=== PATIENT | male | born 1980 | race Two or more races ===

== ENCOUNTER 2021-10-17 03:44 | Inpatient (IN) | payer OTHER ==
[~2021-10-17] VITALS: Ht 177.8 cm; Wt 90.7 kg
--- NOTE | 2021-10-17 05:00 | NUR ---
CALLED FOR TRIAGE NOT IN WAITING ROOM.
--- NOTE | 2021-10-17 05:27 | NUR ---
CALLED FOR TRIAGE NOT IN WAITING ROOM.
--- NOTE | 2021-10-17 06:00 | NUR ---
BIBS C/O "ABSCESS ON LEFT FOOT, LEFT FOOT AMPUTATED 4 MONTHS AGO" WELL ABSCESS TO POSTERIOR ASPECT OF HEAD. PT PLACED ON MONITOR AND IS HYPERTENSIVE ON ASSESSMENT. PT HAS BEEN NON COMPLIENT WITH ANTIGYPERTENIVE MEDICATIONS. WAS AT BEDSIDE FOR EVAL.
[2021-10-17] MEDS ORDERED: LIDOCAINE 1%-EPI 1:100,000 20 ML VIAL ONE (06:08)
--- NOTE | 2021-10-17 06:39 | NUR ---
DR MOURA AT BEDSIDE FOR I&D
--- NOTE | 2021-10-17 06:47 | NUR ---
WOUND CULTURE COLLECTED AND SENT TO LAB
[2021-10-17 06:54] LABS: BASOPHILS # (AUTO) 0.1 K/uL (0.0-0.2); EOSINOPHILS % (AUTO) 3.8 % (0.0-6.0); HEMATOCRIT 40 % (39-51); LYMPHOCYTES # (AUTO) 2.5 K/uL (0.8-4.8); LYMPHOCYTES % (AUTO) 24.7 % (20.0-44.0); MEAN CORPUSCULAR HGB CONC 33 g/dl (31.0-36.0); MEAN CORPUSCULAR VOLUME 80 fL (80-96); MONOCYTES # (AUTO) 0.6 K/uL (0.1-1.30); MONOCYTES % (AUTO) 6.2 % (2.0-12.0); NEUTROPHILS # (AUTO) 6.5 K/uL (1.8-8.9); NEUTROPHILS % (AUTO) 64.3 % (43.0-81.0); PLATELET COUNT (AUTO) 390 K/uL (150-450); RED BLOOD CELL COUNT(AUTO) 4.96 MIL/uL (4.5-6.0); WHITE BLOOD COUNT (AUTO) 10.1 K/uL (4.3-11.0)
[2021-10-17] MEDS ORDERED: hydrALAZINE HCL 25 MG TABLET PO ONE (07:00)
[2021-10-17 07:14] LABS: CALCIUM, SERUM 8.8 mg/dL (8.5-10.1); CARBON DIOXIDE 22 mmol/L (21-32); CHLORIDE 101 mmol/L (98-107); CREATININE 1.7 mg/dL (0.6-1.3); GLUCOSE 240 mg/dL (74-106); POTASSIUM 3.9 mmol/L (3.5-5.1); SODIUM SERUM 134 mmol/L (136-145); UREA NITROGEN, BLOOD 14 mg/dL (7-18)
--- NOTE | 2021-10-17 07:29 | NUR ---
CALLED PODIATRY DR. GONZALEZ [phone]
[2021-10-17] MEDS ORDERED: METF-442 PO (07:56)
[2021-10-17] MEDS ORDERED: GABA-536 PO (07:56)
[2021-10-17] MEDS ORDERED: INSU100I26 SQ (07:56)
[2021-10-17] MEDS ORDERED: LISI10TA29 PO (07:56)
[2021-10-17] MEDS ORDERED: VANCOMYCIN 1 GM in IV D5W 250 ML IV ONE (08:00)
--- NOTE | 2021-10-17 08:40 | NUR ---
COVID SWAB DONE AND SENT TO LAB
[2021-10-17] MEDS ORDERED: HYDROCODONE/APAP 10/325MG TABLET PO ONE (09:00)
[2021-10-17] MEDS ORDERED: HYDROCODONE/APAP 10/325MG TABLET ONE (09:04)
[2021-10-17] MEDS ORDERED: MAGNESIUM HYDROXIDE 30 ML UDC PO PRN (13:00)
[2021-10-17] MEDS ORDERED: HYDROCODONE/APAP 5/325MG TABLET PO PRN (13:00)
[2021-10-17] MEDS ORDERED: ACETAMINOPHEN 325 MG TABLET PO PRN (13:00)
[2021-10-17] MEDS ORDERED: MAG HYDROX/AL HYDROX/SIMETH 30 ML UDC PO PRN (13:00)
[2021-10-17] MEDS ORDERED: ONDANSETRON HCL/PF 4 MG/2 ML VIAL IVP PRN (13:00)
[2021-10-17] MEDS ORDERED: DEXTROSE 50%-WATER 50 ML DISP.SYRIN IV PRN (13:00)
[2021-10-17] MEDS ORDERED: Z GUARD REMEDY 4 OZ OINT TP PRN (13:30)
--- NOTE | 2021-10-17 14:02 | NUR ---
TAKEN TO MRI
[2021-10-17] MEDS ORDERED: METFORMIN 500 MG TABLET ONE (17:24)
[2021-10-17] MEDS: BLOOD SUGAR DIAGNOSTIC 1 EACH STRIP VI SCH ×2 (17:33→22:00)
[2021-10-17] MEDS: VANCOMYCIN HCL 0.75 GM in IV D5W 250 ML IV SCH (17:33)
[2021-10-17] MEDS: METFORMIN 500 MG TABLET PO SCH (17:33)
--- NOTE | 2021-10-17 17:50 | NUR ---
GOT BED 312-2
--- NOTE | 2021-10-17 17:57 | NUR ---
REPORT GIVEN TO SHANTELL GARZA FOR BENJA
--- NOTE | 2021-10-17 19:29 | NUR ---
MOVE SHEET RESUBMITTED.
[2021-10-17 20:00] VITALS: BP 170/111
[2021-10-17 20:15] VITALS: BP 170/111
--- NOTE | 2021-10-17 20:30 | NUR ---
MS TRANSITIONAL CARE NURSE NOTE; RECEIVED REPORT TO SHANTELL BARCENAS, RECEIVED PATIENT AWAKE IN BED IN LOW POSITION , CALL LIGHTS WITHIN REACH, NO COMPLAIN OF PAIN AND DISCOMFORT AT THIS TIME, ON ROOM AIR SATURATING WELL, SKIN ASSESSMENT DONE, DOCUMENTED, INVENTORY, DONE, PATIENT IS A/O X4 ABLE TOT EXPRESS NEEDS, REORIENT TO ROOM, REMIND PATIENT TO USE CALL LIGHTS WHEN NEEDED ASSISTANCE, PATIENT WITH IV LINE AT RAC #20 WITH ONGOING 0.9NSS@75ML PER HOUR INFUSING WELL, PATIENT KEPT CLEAN AND DRY ALL NEEDS MET WILL CONTINUE TO MONITOR.
[2021-10-17] MEDS ORDERED: INSULIN GLARGINE,BASAGLAR 100 UNIT/ML INSULN.PEN SQ SCH (22:00)
[2021-10-17] MEDS ORDERED: hydrALAZINE HCL 25 MG TABLET PO SCH (23:00)
[2021-10-17] MEDS: *INSULIN REGULAR(HUMULIN R)HUM 100 UNIT/ML VIAL SQ PRN (23:10)
--- NOTE | 2021-10-17 23:30 | NUR ---
RN NOTES: RECEIVED V/S FROM ASPHALT SMOOTHER AND NOTED WITH INCREASE BLOOD PRESSURE AT 170/111, PULSE OF [address] ASKEW AND ORDERED TO DO MANUAL BP IF BP IS 160/90 GIVEN ONE TIME ORDER OF HYDRALAZINE 25MG PO AND INCREASE EXISTING HYPERTENSION MEDS TO LISINOPRIL 20MG ONCE A DAY, NOTED AND CARRY OUT.
--- NOTE | 2021-10-17 23:45 | NUR ---
RN NOTES: RE CHECK V/S AFTER GIVING HYDRALAZINE 25 MG V/S ARE FOLLOWS BP-150/98, H-95, TEMP-97.8,RR-18 O2 SAT-99 PERCENT ROOM AIR, PATIENT REMAINS STABLE AT THIS TIME, WILL CONTINUE TO MONITOR.
[2021-10-18] MEDS ORDERED: INSULIN GLARGINE, 100 UNIT/ML CARTRIDGE SQ ONE (00:04)
[2021-10-18] MEDS: INSULIN GLARGINE, 100 UNIT/ML CARTRIDGE SQ SCH ×2 (00:29→22:26)
[2021-10-18] MEDS: IV NS 0.9% 1,000 ML IV PRN (01:45)
[2021-10-18] MEDS ORDERED: VANCOMYCIN 1 GM VIAL ONE (06:24)
[2021-10-18] MEDS: VANCOMYCIN HCL 0.75 GM in IV D5W 250 ML IV SCH ×2 (06:29→18:30)
[2021-10-18 07:13] LABS: BASOPHILS # (AUTO) 0.2 K/uL (0.0-0.2); BASOPHILS % (AUTO) 1.9 % (0.0-2.0); EOSINOPHILS % (AUTO) 3.5 % (0.0-6.0); HEMATOCRIT 40 % (39-51); HEMOGLOBIN 13.1 g/dL (13.5-17.5); LYMPHOCYTES # (AUTO) 2.3 K/uL (0.8-4.8); LYMPHOCYTES % (AUTO) 21.7 % (20.0-44.0); MEAN CORPUSCULAR HGB CONC 33 g/dl (31.0-36.0); MEAN CORPUSCULAR VOLUME 80 fL (80-96); MONOCYTES # (AUTO) 0.6 K/uL (0.1-1.30); MONOCYTES % (AUTO) 5.8 % (2.0-12.0); NEUTROPHILS # (AUTO) 7.2 K/uL (1.8-8.9); NEUTROPHILS % (AUTO) 67.1 % (43.0-81.0); PLATELET COUNT (AUTO) 410 K/uL (150-450); WHITE BLOOD COUNT (AUTO) 10.6 K/uL (4.3-11.0)
[2021-10-18] MEDS: BLOOD SUGAR DIAGNOSTIC 1 EACH STRIP VI SCH ×4 (07:30→22:23)
--- NOTE | 2021-10-18 07:31 | NUR ---
MS RN OPENING NOTES RECEIVED PT AWAKE IN BED IN NO ACUTE SIGNS OF DISTRESS. A/O X4. ABLE TO MAKE NEEDS KNOWN, DENIES PAIN OR ANY DISCOMFORTS AT THIS TIME. ON ROOM AIR, TOLERATING WELL, BREATHING IS EVEN AND UNLABORED. IV ACCESS ON RIGHT AC G#20 INTACT WITH IVF OF NS @75 ML/HR INFUSING WELL, NO S/S OF INFILTRATION AT SITE NOTED. SAFETY MEASURES ARE IN PLACED: BED IS LOCKED AND IN LOWEST POSITION, SIDE RAILS UPx2, CALL LIGHT AND BED SIDE TABLE WITHIN EASY REACH OF PT. WILL CONTINUE TO MONITOR.
--- NOTE | 2021-10-18 07:41 | NUR ---
RN NOTES: VANCOMYCIN 0.75 Q12H GIVEN MEDICATION C/O CN
--- NOTE | 2021-10-18 07:41 | NUR ---
RN NOTES: BS-121 NO INSULIN GIVEN
[2021-10-18 07:48] LABS: CALCIUM, SERUM 8.8 mg/dL (8.5-10.1); CREATININE 1.6 mg/dL (0.6-1.3); MAGNESIUM 2.1 mg/dL (1.8-2.4); PHOSPHORUS 4.1 mg/dL (2.5-4.9); POTASSIUM 4.3 mmol/L (3.5-5.1)
--- NOTE | 2021-10-18 07:48 | NUR ---
MS RN CLOSING NOTES: RECEIVED PATIENT SLEEP IN BED COMFORTABLY,AROUSABLE TO VERBAL STIMULI, BED IN LOW POSITION, CALL LIGHTS WITHIN REACH, NO COMPLAIN OF PAIN AND DISCOMFORT AT THIS TIME, WITH RAC IV LINE WITH ONGOING NSS@75ML PER HOUR INFUSING WELL, PATIENT ON ROOM AIR, VITALS REMAIN STABLE, PATIENT KEPT CLEAN AND DRY ALL NEEDS MET, ENDORSE TO INCOMING SHIFT.
[2021-10-18 08:00] VITALS: BP 156/98
--- NOTE | 2021-10-18 08:36 | NUR ---
RN NOTES LEFT FOOT EXCISIONAL WOUND DEBRIDEMENT OF NECROTIC DEVITALIZED TISSUE PERFORMED BY DR BONILLA THIS MORNING.
[2021-10-18] MEDS: METFORMIN 500 MG TABLET PO SCH ×2 (08:55→16:15)
[2021-10-18] MEDS: LISINOPRIL (20MG) 20 MG TABLET PO SCH (08:55)
[2021-10-18] MEDS: GABAPENTIN 300 MG CAPSULE PO SCH (08:55)
[2021-10-18] MEDS ORDERED: LISINOPRIL (10MG) 10 MG TABLET PO SCH (09:00)
[2021-10-18] MEDS: THERAHONEY GEL 1.5 OZ TUBE TP SCH (09:54)
[2021-10-18] MEDS: INSULIN REGULAR, HUMAN 100 UNIT/ML 3 ML VIAL SQ PRN ×2 (11:30→17:28)
--- NOTE | 2021-10-18 15:14 | NUR ---
RN NOTES ASKED PT IF HE'S COVID VACCINATED AND STATED " YES". 2 DOSES OF MODERNA 4 MONTHS AGO BUT FORGOT DATES.
[2021-10-18 15:54] VITALS: BP 121/77
[2021-10-18] MEDS ORDERED: CEFTRIAXONE 1GM BAG (ER ONLY) 1 GM/50 ML PIGGYBACK IV ONE (18:30)
--- NOTE | 2021-10-18 18:35 | NUR ---
MS RN CLOSING NOTES PT IN BED AWAKE AND RESTING AT MODERATE HIGH BACKREST POSITION AT THIS TIME. A/O X4. ABLE TO MAKE NEEDS KNOWN. ON ROOM AIR, TOLERATING WELL, BREATHING IS EVEN AND UNLABORED. IV ACCESS ON RIGHT AC G#20 INTACT, IV ABX VANCOMYCIN AT 250ML/HR INFUSING WELL AT THIS TIME, NO S/S OF INFILTRATION AT SITE NOTED. ALL NEEDS AND CARE ATTENDED WELL. SAFETY MEASURES ARE IN PLACED: BED IS LOCKED AND IN LOWEST POSITION, SIDE RAILS UPx2, CALL LIGHT AND BED SIDE TABLE WITHIN EASY REACH OF PT. WILL ENDORSE BENJA TO CLEARANCE REPRESENTATIVE NURSE..
--- NOTE | 2021-10-18 19:47 | NUR ---
MS RN OPENING RECEIVED PATIENT IN BED WITH EYES CLOSED, EASY TO AROUSE. A/OX4.NO S/S OF APPARENT DISTRESS ON ROOM AIR. NO C/O PAIN AT THIS TIME. VANCO STILL RUNNING AT THIS TIME @250ML/HR. SAFETY IN PLACE. PATIENT HAS NO NEEDS AT THIS TIME. WILL CONTINUE WITH CARE PLAN.
[2021-10-18] MEDS ORDERED: CEFTRIAXONE 2 G in IV NS 0.9% 100 ML IV SCH (20:00)
[2021-10-18] MEDS: CEFTRIAXONE 2 G in IV D5W 100 ML IV SCH (20:03)
[2021-10-18 20:30] VITALS: BP 149/93
[2021-10-18] MEDS: HYDROCODONE/APAP 10/325MG TABLET PO PRN (21:43)
[2021-10-18] MEDS: *INSULIN REGULAR(HUMULIN R)HUM 100 UNIT/ML VIAL SQ PRN (22:30)
[2021-10-19] MEDS: IV NS 0.9% 1,000 ML IV PRN ×2 (01:02→17:26)
[2021-10-19] MEDS: VANCOMYCIN HCL 0.75 GM in IV D5W 250 ML IV SCH ×2 (05:42→18:22)
[2021-10-19] MEDS: HYDROCODONE/APAP 10/325MG TABLET PO PRN (05:51)
[2021-10-19 06:45] LABS: BASOPHILS # (AUTO) 0.2 K/uL (0.0-0.2); BASOPHILS % (AUTO) 0.9 % (0.0-2.0); EOSINOPHILS % (AUTO) 1.3 % (0.0-6.0); HEMATOCRIT 42 % (39-51); HEMOGLOBIN 13.1 g/dL (13.5-17.5); LYMPHOCYTES # (AUTO) 1.8 K/uL (0.8-4.8); LYMPHOCYTES % (AUTO) 9.8 % (20.0-44.0); MEAN CORPUSCULAR HGB CONC 32 g/dl (31.0-36.0); MEAN CORPUSCULAR VOLUME 81 fL (80-96); MONOCYTES # (AUTO) 0.7 K/uL (0.1-1.30); MONOCYTES % (AUTO) 3.8 % (2.0-12.0); NEUTROPHILS # (AUTO) 15.7 K/uL (1.8-8.9); NEUTROPHILS % (AUTO) 84.2 % (43.0-81.0); PLATELET COUNT (AUTO) 447 K/uL (150-450); RED BLOOD CELL COUNT(AUTO) 5.13 MIL/uL (4.5-6.0); WHITE BLOOD COUNT (AUTO) 18.7 K/uL (4.3-11.0)
[2021-10-19] MEDS: BLOOD SUGAR DIAGNOSTIC 1 EACH STRIP VI SCH ×4 (07:11→22:09)
[2021-10-19] MEDS: INSULIN REGULAR, HUMAN 100 UNIT/ML 3 ML VIAL SQ PRN (07:12)
--- NOTE | 2021-10-19 07:12 | NUR ---
MS RN NOTE BLOOD SUGAR 123. NO COVERAGE NEEDED.
--- NOTE | 2021-10-19 07:29 | NUR ---
MS RN OPENING NOTES RECEIVED PATIENT ON BED ASLEEP BUT EASILY AROUSABLE. PATIENT IS ALERT/ ORIENTED X 4. ON ROOM AIR WITH EQUAL AND UNLABORED BREATHING, NO SOB NOTED. NO SIGNS AND SYMPTOMS OR COMPLAINTS OF PAIN OR DISCOMFORT AT THIS TIME. WITH RIGHT AC IV ACCESS WITH IV FLUID OF NS RUNNING AT 7 ML/HR, INFUSING WELL. WITH DRESSING ON OCCIPITAL SCALP, DRY AND INTACT. WITH DRESSING ON THE RIGHT FOOT COVERED WITH DRESSING, DRY AND INTACT. PATIENT HAD DEBRIDEMENT WITH NO NOTED COMPLICATION OBSERVED. SAFETY MEASURES IN PLACE. CALL LIGHT WITHIN REACH. BED ON LOWEST, LOCKED POSITION, SIDE RAILS UP X2. WILL CONTINUE TO MONITOR PATIENT.
--- NOTE | 2021-10-19 07:30 | NUR ---
REPORT GIVEN TO CAITLYN FOR CONTINUITY OF CARE.
[2021-10-19 07:47] LABS: CALCIUM, SERUM 8.9 mg/dL (8.5-10.1); CREATININE 1.7 mg/dL (0.6-1.3); POTASSIUM 4.3 mmol/L (3.5-5.1)
[2021-10-19 08:25] VITALS: BP 139/74
[2021-10-19] MEDS: METFORMIN 500 MG TABLET PO SCH ×2 (08:57→17:23)
[2021-10-19] MEDS: GABAPENTIN 300 MG CAPSULE PO SCH (08:57)
[2021-10-19] MEDS: THERAHONEY GEL 1.5 OZ TUBE TP SCH (09:00)
[2021-10-19] MEDS: LISINOPRIL (20MG) 20 MG TABLET PO SCH (09:01)
--- NOTE | 2021-10-19 09:10 | NUR ---
MS RN NOTE PATIENT SEEN BY DR. SANCHEZ. WILL CONTINUE TO MONITOR PATIENT.
--- NOTE | 2021-10-19 14:10 | NUR ---
MS RN NOTE WITH ORDER FOR PICC LINE. CONSENT SECURED AND ATTACHED TO CHART. S/P PICC LINE INSERTION ORDERED. PROCEDURE TOLERATED WELL. MD NOTIFIED WITH ORDER FOR XRAY. WILL CONTINUE TO MONITOR PATIENT.
[2021-10-19 16:38] VITALS: BP 132/77
--- NOTE | 2021-10-19 18:59 | NUR ---
MS RN CLOSING NOTES PATIENT ON BED INTERMITENTLY SLEEPS BUT EASILY AROUSABLE. PATIENT IS ALERT/ ORIENTED X 4. ON ROOM AIR WITH EQUAL AND UNLABORED BREATHING, NO SOB NOTED. NO SIGNS AND SYMPTOMS OR COMPLAINTS OF PAIN OR DISCOMFORT AT THIS TIME. WITH RIGHT AC IV ACCESS WITH IV FLUID OF NS RUNNING AT 75 ML/HR, INFUSING WELL. WITH PICC LINE ON RIGHT ARM, PATENT AND INTACT. WITH DRESSING ON OCCIPITAL SCALP, DRY AND INTACT. WITH DRESSING ON THE RIGHT FOOT COVERED WITH DRESSING, DRY AND INTACT. PATIENT HAD DEBRIDEMENT WITH NO NOTED COMPLICATION OBSERVED. SAFETY MEASURES IN PLACE. CALL LIGHT WITHIN REACH. BED ON LOWEST, LOCKED POSITION, SIDE RAILS UP X2. WILL ENDORSE TO NEXT SHIFT FOR CONTINUITY OF CARE.
[2021-10-19 20:00] VITALS: BP 135/86
[2021-10-19] MEDS: CEFTRIAXONE 2 G in IV D5W 100 ML IV SCH (20:09)
[2021-10-19] MEDS: INSULIN GLARGINE, 100 UNIT/ML CARTRIDGE SQ SCH (22:10)
[2021-10-19] MEDS: *INSULIN REGULAR(HUMULIN R)HUM 100 UNIT/ML VIAL SQ PRN (22:13)
[2021-10-20] MEDS: VANCOMYCIN HCL 0.75 GM in IV D5W 250 ML IV SCH ×2 (06:06→17:41)
[2021-10-20] MEDS: BLOOD SUGAR DIAGNOSTIC 1 EACH STRIP VI SCH ×4 (06:54→21:40)
[2021-10-20] MEDS: INSULIN REGULAR, HUMAN 100 UNIT/ML 3 ML VIAL SQ PRN ×3 (06:58→17:14)
--- NOTE | 2021-10-20 07:28 | NUR ---
MS RN OPENING NOTES RECEIVED PT IN BED AWAKE, A/O X4. ABLE TO MAKE NEEDS KNOWN, DENIES PAIN OR ANY DISCOMFORTS AT THIS TIME. ON ROOM AIR, TOLERATING WELL, BREATHING IS EVEN AND UNLABORED. MARY JO PICC LINE INTACT WITH IVF OF NS @75 ML/HR INFUSING WELL. SAFETY MEASURES ARE IN PLACED: BED IS LOCKED AND IN LOWEST POSITION, SIDE RAILS UPx2, CALL LIGHT AND BED SIDE TABLE WITHIN EASY REACH OF PT. WILL CONTINUE TO MONITOR.
[2021-10-20 07:38] LABS: CALCIUM, SERUM 8.6 mg/dL (8.5-10.1); CREATININE 1.7 mg/dL (0.6-1.3)
--- NOTE | 2021-10-20 07:41 | NUR ---
REPORT GIVEN TO DARCY FOR CONTINUITY OF CARE.
[2021-10-20 07:47] LABS: BASOPHILS # (AUTO) 0.1 K/uL (0.0-0.2); BASOPHILS % (AUTO) 0.8 % (0.0-2.0); EOSINOPHILS % (AUTO) 1.7 % (0.0-6.0); HEMATOCRIT 39 % (39-51); HEMOGLOBIN 12.6 g/dL (13.5-17.5); LYMPHOCYTES # (AUTO) 2.5 K/uL (0.8-4.8); LYMPHOCYTES % (AUTO) 19.3 % (20.0-44.0); MEAN CORPUSCULAR HGB CONC 32 g/dl (31.0-36.0); MEAN CORPUSCULAR VOLUME 81 fL (80-96); MONOCYTES # (AUTO) 0.6 K/uL (0.1-1.30); NEUTROPHILS # (AUTO) 9.4 K/uL (1.8-8.9); NEUTROPHILS % (AUTO) 73.2 % (43.0-81.0); PLATELET COUNT (AUTO) 414 K/uL (150-450); RED BLOOD CELL COUNT(AUTO) 4.84 MIL/uL (4.5-6.0); WHITE BLOOD COUNT (AUTO) 12.8 K/uL (4.3-11.0)
[2021-10-20] MEDS: GABAPENTIN 300 MG CAPSULE PO SCH (08:24)
[2021-10-20] MEDS: LISINOPRIL (20MG) 20 MG TABLET PO SCH (08:24)
[2021-10-20] MEDS: METFORMIN 500 MG TABLET PO SCH ×2 (08:24→16:35)
[2021-10-20 08:32] VITALS: BP 141/98
[2021-10-20] MEDS: THERAHONEY GEL 1.5 OZ TUBE TP SCH (09:18)
[2021-10-20] MEDS ORDERED: VANC1PLA9 IV (09:36)
[2021-10-20] MEDS: HYDROCODONE/APAP 10/325MG TABLET PO PRN ×2 (10:34→15:00)
--- NOTE | 2021-10-20 10:35 | NUR ---
RN NOTES PT C/O PAIN ON LEFT FOOT, 8/10 SCALE AFTER DRESSING CHANGED BY DR BONILLA. PRN NORCO 10/325MG TAB GIVEN ORDERED. WILL CONTINUE TO MONITOR AND REASSESS PT
--- NOTE | 2021-10-20 11:00 | NUR ---
WOUND CARE CONSULT; PT SEEN FOR POSTERIOR SCALP ABSCESS, S/P I&D IN E.R. BUT THERE IS FLUCTUANCE AND PURULENT DRAINAGE. PREVIOUS PACKING HAD FALLEN OUT. RECOMMEND SURGICAL CONSULT AND DRY DRESSING FOR NOW. DISCUSSED WITH NURSING STAFF AND STENCIL SPRAYER. DEFER TO PMD FOR SURGICAL CONSULT (GENERAL SURGERY).
--- NOTE | 2021-10-20 15:01 | NUR ---
RN NOTES PT SEEN AND EVALUATED BY DR BUSH WITH ORDER TO OBTAIN CONSENT FOR "I AND D OF POSTERIOR SCALP ABSCESS" FOR TOMORROW. NPO POST MIDNIGHT. PT THEN C/O PAIN ON THE AREA, 8/10 SCALE. PRN NORCO 10/325 TAB GIVEN AT 1500. WILL CONTINUE TO MONITOR AND REASSESS PT.
[2021-10-20 15:58] VITALS: BP 120/84
--- NOTE | 2021-10-20 18:42 | NUR ---
MS RN CLOSING NOTES PT IN BED ASLEEP AT THIS TIME, EASILY AWAKENS. PT IS A/O X4. ABLE TO MAKE NEEDS KNOWN. ON ROOM AIR, TOLERATING WELL, BREATHING IS EVEN AND UNLABORED. MARY JO PICC LINE INTACT WITH IVF OF NS AT 75ML/HR INFUSING WELL. ALL NEEDS AND CARE ATTENDED WELL. SAFETY MEASURES ARE IN PLACED: BED IS LOCKED AND IN LOWEST POSITION, SIDE RAILS UPx2, CALL LIGHT AND BED SIDE TABLE WITHIN EASY REACH OF PT. PT FOR URINE SPECIMEN COLLECTION. WILL ENDORSE PLAN OF CARE TO JAZZ MUSICIAN NURSE..
--- NOTE | 2021-10-20 19:30 | NUR ---
MS RN OPENING NOTES RECEIVED PT IN BED ASLEEP AT THIS TIME, EASILY AROUSABLE. A/O X4. ABLE TO MAKE NEEDS KNOWN. PT STABLE ON ROOM AIR. NO SOB OR S/S OF RESPIRATORY DISTRESS. MARY JO PICC LINE RUNNING NS AT 75ML/HR INTACT AND PATENT. LEFT FOOT DRESSING C/D/I. SAFETY PRECAUTIONS IN PLACE . BED IN LOWEST LOCKED POSITION, HOB ELEVATED, SIDE RAILS UP X2, AND CALL LIGHT AND TABLE WITHIN REACH. WILL CONTINUE WITH PLAN OF CARE.
[2021-10-20] MEDS: CEFTRIAXONE 2 G in IV D5W 100 ML IV SCH (20:15)
[2021-10-20 21:20] VITALS: BP 143/71
[2021-10-20] MEDS: *INSULIN REGULAR(HUMULIN R)HUM 100 UNIT/ML VIAL SQ PRN (21:42)
[2021-10-20] MEDS: INSULIN GLARGINE, 100 UNIT/ML CARTRIDGE SQ SCH (22:03)
[2021-10-21 02:11] LABS: BILIRUBIN,URINE NEGATIVE (NEGATIVE); COLOR,URINE YELLOW (YELLOW); LEUKOCYTE ESTERASE ,URINE NEGATIVE (NEGATIVE); NITRITE, URINE NEGATIVE (NEGATIVE); PH,URINE 6.5 (5.0-8.0); PROTEIN,URINE 100 mg/dl (NEGATIVE); UGLUCOSE 250 MG/DL mg/dL (NEGATIVE); UROBILINOGEN,URINE 0.2 EU/dL (0.2)
[2021-10-21 02:26] LABS: CREATININE, URINE 41.9 MG/DL (30.0-125.0); URINE TOTAL PROTEIN 297.1 mg/dL (0-11.9)
[2021-10-21] MEDS: IV NS 0.9% 1,000 ML IV PRN (03:46)
[2021-10-21] MEDS: VANCOMYCIN HCL 0.75 GM in IV D5W 250 ML IV SCH ×2 (05:05→18:55)
[2021-10-21 06:37] LABS: BASOPHILS # (AUTO) 0.1 K/uL (0.0-0.2); BASOPHILS % (AUTO) 1.2 % (0.0-2.0); EOSINOPHILS % (AUTO) 3.4 % (0.0-6.0); HEMATOCRIT 39 % (39-51); HEMOGLOBIN 12.8 g/dL (13.5-17.5); LYMPHOCYTES # (AUTO) 2.4 K/uL (0.8-4.8); LYMPHOCYTES % (AUTO) 27.9 % (20.0-44.0); MEAN CORPUSCULAR HGB CONC 33 g/dl (31.0-36.0); MEAN CORPUSCULAR VOLUME 81 fL (80-96); MONOCYTES # (AUTO) 0.6 K/uL (0.1-1.30); MONOCYTES % (AUTO) 6.6 % (2.0-12.0); NEUTROPHILS # (AUTO) 5.1 K/uL (1.8-8.9); NEUTROPHILS % (AUTO) 60.9 % (43.0-81.0); PLATELET COUNT (AUTO) 407 K/uL (150-450); RED BLOOD CELL COUNT(AUTO) 4.84 MIL/uL (4.5-6.0); WHITE BLOOD COUNT (AUTO) 8.4 K/uL (4.3-11.0)
[2021-10-21] MEDS: BLOOD SUGAR DIAGNOSTIC 1 EACH STRIP VI SCH ×4 (06:43→22:15)
[2021-10-21] MEDS: *INSULIN REGULAR(HUMULIN R)HUM 100 UNIT/ML VIAL SQ PRN ×2 (06:48→22:26)
--- NOTE | 2021-10-21 07:00 | NUR ---
MS RN CLOSING NOTES PT IN BED ASLEEP AT THIS TIME, EASILY AROUSABLE. A/O X4. ABLE TO MAKE NEEDS KNOWN. PT STABLE ON ROOM AIR. NO SOB OR S/S OF RESPIRATORY DISTRESS. MARY JO PICC LINE RUNNING NS AT 75ML/HR INTACT AND PATENT. LEFT FOOT DRESSING C/D/I. ALL NEEDS MET AT THIS TIME. SAFETY PRECAUTIONS IN PLACE AT ALL TIMES. BED IN LOWEST LOCKED POSITION, HOB ELEVATED, SIDE RAILS UP X2, AND CALL LIGHT AND TABLE WITHIN REACH. WILL ENDORSE TO ONCOMING NURSE FOR BENJA.
--- NOTE | 2021-10-21 07:50 | NUR ---
MS RN OPENING NOTES PATIENT IN BED AWAKE AND A/O X4. ON ROOM AIR TOLERATING WELL, NO SOB NOTED. AWAITING FOR PROCEDURE THIS AM. WILL CONTINUE TO MONITOR.
[2021-10-21] MEDS ORDERED: ANESTHESIA TRAY IN PYXIS 1 EA TRAY MC ONE (07:53)
[2021-10-21] MEDS ORDERED: CELLULOSE,OXIDIZED 1 PKT EACH MC ONE (07:53)
[2021-10-21] MEDS ORDERED: BUPIVACAINE MPF W/EPI 0.25% 30 ML VIAL ONE ×2 (07:53→08:51)
[2021-10-21] MEDS ORDERED: BUPIVACAINE 0.25% 75 MG/30 ML VIAL ONE ×2 (07:53→07:54)
[2021-10-21 08:37] VITALS: BP 143/84
[2021-10-21] MEDS ORDERED: SUCCINYLCHOLINE CHLORIDE 20 MG/ML VIAL ONE (08:46)
[2021-10-21] MEDS ORDERED: FENTANYL PF 100MCG/2ML AMPUL ONE (08:46)
[2021-10-21] MEDS ORDERED: PROPOFOL 20 ML IV ONE (08:46)
[2021-10-21] MEDS: METFORMIN 500 MG TABLET PO SCH ×2 (08:47→17:33)
[2021-10-21] MEDS: THERAHONEY GEL 1.5 OZ TUBE TP SCH (08:48)
[2021-10-21] MEDS: GABAPENTIN 300 MG CAPSULE PO SCH (08:48)
[2021-10-21] MEDS: LISINOPRIL (20MG) 20 MG TABLET PO SCH (08:48)
[2021-10-21] MEDS ORDERED: LIDOCAINE 1% INJ 50 ML MDV IJ ONE (08:52)
--- NOTE | 2021-10-21 09:00 | NUR ---
MS RN NOTES PATIENT LEFT TO OR FOR PROCEDURE
[2021-10-21 09:46] LABS: BACTERIA,URINE Rare /HPF (None Seen); RBC,URINE 0-2 /HPF (0-2); SQUAMOUS EPITHELIAL CELL,UR Few /HPF (None Seen); WBC,URINE 0-2 /HPF (0-3)
[2021-10-21 10:27] LABS: CALCIUM, SERUM 8.7 mg/dL (8.5-10.1); CREATININE 1.6 mg/dL (0.6-1.3); POTASSIUM 4.8 mmol/L (3.5-5.1)
--- NOTE | 2021-10-21 12:45 | NUR ---
MS RN NOTES PATIENT COMPLAINING OF PAIN 6/10 AT THE PROCEDURE SITE. PRN NORCO 10 ADMINISTERED. WILL REASSESS.
[2021-10-21] MEDS: HYDROCODONE/APAP 10/325MG TABLET PO PRN (12:47)
--- NOTE | 2021-10-21 14:25 | NUR ---
MS RN NOTES PATIENT COMPLAINING OF PAIN 10/10 AT THE PROCEDURE SITE. PRN MORPHINE ADMINISTERED. WILL REASSESS.
[2021-10-21] MEDS: MORPHINE SULFATE INJ 2 MG/ML DISP.SYRIN IV PRN ×3 (14:27→23:05)
[2021-10-21 16:27] VITALS: BP_SYST 136; BP_SYST 143; BP_DIAS 84; BP_DIAS 94
--- NOTE | 2021-10-21 19:17 | NUR ---
MS RN CLOSING NOTES PATIENT REMAINS IN BED, AWAKE, A/O X4. PATIENT ON ROOM AIR; BREATHING EVEN AND UNLABORED. NO S/S OF DISTRESS NOTED. ALL NEEDS ATTENDED DURING THE DAY. PAIN TREATED WITH PRN PAIN MEDS PER MD ORDER. WILL ENDORSE TO HOUSING PROPERTY MANAGER NURSE FOR BENJA.
--- NOTE | 2021-10-21 19:32 | NUR ---
MS RN OPENING NOTES RECEIVED PT IN BED ASLEEP AT THIS TIME, EASILY AROUSABLE. A/O X4. ABLE TO MAKE NEEDS KNOWN. PT STABLE ON ROOM AIR. NO SOB OR S/S OF RESPIRATORY DISTRESS. MARY JO PICC LINE RUNNING NS AT 75ML/HR INTACT AND PATENT. SAFETY PRECAUTIONS IN PLACE . BED IN LOWEST LOCKED POSITION, HOB ELEVATED, SIDE RAILS UP X2, AND CALL LIGHT AND TABLE WITHIN REACH. WILL CONTINUE WITH PLAN OF CARE.
[2021-10-21] MEDS: CEFTRIAXONE 2 G in IV D5W 100 ML IV SCH (19:39)
[2021-10-21 21:08] VITALS: BP 153/98
[2021-10-21] MEDS: INSULIN GLARGINE, 100 UNIT/ML CARTRIDGE SQ SCH (22:28)
--- NOTE | 2021-10-21 23:05 | NUR ---
RN NOTE PT COMPLAINED OF PAIN 8/10 OF THE POSTERIOR SCALP. ADMINISTERED MORPHINE 2 MG ORDERED FOR SEVERE PAIN. VSS. WILL CONTINUE TO MONITOR.
[2021-10-22] MEDS: HYDROCODONE/APAP 10/325MG TABLET PO PRN ×2 (00:57→09:05)
[2021-10-22] MEDS: IV NS 0.9% 1,000 ML IV PRN (00:58)
--- NOTE | 2021-10-22 00:58 | NUR ---
RN NOTE PT COMPLAINED ABOUT PAIN 8/10 OF THE POSTERIOR SCALP. ADMINISTERED NORCO 10-325 MG FOR SEVERE PAIN ORDERED. VSS. WILL CONTINUE TO MONITOR.
[2021-10-22 05:00] VITALS: BP 163/97
[2021-10-22] MEDS: VANCOMYCIN HCL 0.75 GM in IV D5W 250 ML IV SCH (06:00)
--- NOTE | 2021-10-22 06:00 | NUR ---
RN NOTE VANCO TROUGH STILL PENDING. HOLDING VANCO UNTIL TROUGH LEVEL COMES IN FROM LAB. CHARGE NURSE JACKIE KINNEY. WILL CONTINUE TO MONITOR.
[2021-10-22 06:19] LABS: BASOPHILS # (AUTO) 0.1 K/uL (0.0-0.2); BASOPHILS % (AUTO) 0.9 % (0.0-2.0); HEMATOCRIT 39 % (39-51); HEMOGLOBIN 12.6 g/dL (13.5-17.5); LYMPHOCYTES # (AUTO) 2.2 K/uL (0.8-4.8); LYMPHOCYTES % (AUTO) 23.2 % (20.0-44.0); MEAN CORPUSCULAR HGB CONC 32 g/dl (31.0-36.0); MEAN CORPUSCULAR VOLUME 81 fL (80-96); MONOCYTES # (AUTO) 0.6 K/uL (0.1-1.30); MONOCYTES % (AUTO) 6.1 % (2.0-12.0); NEUTROPHILS # (AUTO) 6.4 K/uL (1.8-8.9); NEUTROPHILS % (AUTO) 66.8 % (43.0-81.0); PLATELET COUNT (AUTO) 424 K/uL (150-450); RED BLOOD CELL COUNT(AUTO) 4.83 MIL/uL (4.5-6.0); WHITE BLOOD COUNT (AUTO) 9.5 K/uL (4.3-11.0)
[2021-10-22] MEDS: MORPHINE SULFATE INJ 2 MG/ML DISP.SYRIN IV PRN (06:24)
--- NOTE | 2021-10-22 06:24 | NUR ---
RN NOTE PT COMPLAINED OF PAIN 8/10 OF THE POSTERIOR SCALP. ADMINISTERED MORPHINE 2 MG ORDERED FOR SEVERE PAIN. VSS. WILL CONTINUE TO MONITOR.
[2021-10-22] MEDS: BLOOD SUGAR DIAGNOSTIC 1 EACH STRIP VI SCH ×2 (06:30→12:18)
[2021-10-22] MEDS: INSULIN REGULAR, HUMAN 100 UNIT/ML 3 ML VIAL SQ PRN ×2 (06:31→12:19)
--- NOTE | 2021-10-22 06:47 | NUR ---
MS RN CLOSING NOTES PT IN BED ASLEEP AT THIS TIME, EASILY AROUSABLE. A/O X4. ABLE TO MAKE NEEDS KNOWN. PT STABLE ON ROOM AIR. NO SOB OR S/S OF RESPIRATORY DISTRESS. MARY JO PICC LINE RUNNING NS AT 100ML/HR INTACT AND PATENT. LEFT FOOT DRESSING AND POSTERIOR SCALP DRESSING C/D/I. ALL NEEDS MET AT THIS TIME. SAFETY PRECAUTIONS IN PLACE AT ALL TIMES. BED IN LOWEST LOCKED POSITION, HOB ELEVATED, SIDE RAILS UP X2, AND CALL LIGHT AND TABLE WITHIN REACH. WILL ENDORSE TO ONCOMING NURSE FOR BENJA.
[2021-10-22 06:48] LABS: CREATININE 1.6 mg/dL (0.6-1.3); PHOSPHORUS 3.7 mg/dL (2.5-4.9); POTASSIUM 4.5 mmol/L (3.5-5.1)
--- NOTE | 2021-10-22 06:52 | NUR ---
RN NOTE [facility] LEVEL 21. HELD VANCO AND INFORMED PHARMACY. CHARGE NURSE JACKIE AWARE. WILL ENDORSE TO ONCOMING SHIFT FOR BENJA.
--- NOTE | 2021-10-22 07:30 | NUR ---
MS RN OPENING NOTES RECEIVED PATIENT AWAKE AND A/O X4. ON ROOM AIR TOLERATING WELL. NO SOB NOTED. NOT IN DISTRESS. WITH NO COMPLAINTS OF PAIN OR DISCOMFORT AT THIS TIME. WITH IV ACCESS AT RIGHT UPPER ARM PICC LINE, SALINE LOCKED, PATENT AND INTACT. SAFETY MEASURES IN PLACED. CALL LIGHT WITHIN REACH. BED ON LOWEST LOCKED POSITION, SIDE RAILS UP X2. WILL CONTINUE TO MONITOR.
[2021-10-22 08:00] VITALS: BP 163/97
[2021-10-22 09:00] VITALS: BP 163/97
[2021-10-22] MEDS: GABAPENTIN 300 MG CAPSULE PO SCH (09:00)
[2021-10-22] MEDS: LISINOPRIL (20MG) 20 MG TABLET PO SCH (09:00)
[2021-10-22] MEDS: METFORMIN 500 MG TABLET PO SCH (09:00)
[2021-10-22] MEDS: THERAHONEY GEL 1.5 OZ TUBE TP SCH (09:03)
[2021-10-22] MEDS ORDERED: CEFT2FRO2 IV (12:31)
--- NOTE | 2021-10-22 14:10 | NUR ---
SS Consult: SS consult for lives with motel. Pt. Is a 41-year-old female. Pt. demonstrates adequate insight to the reason for hospitalization. Per pt., he was brought to hospital by his friend due to left leg cellulitis. Pt. was oriented x3, alert, and cooperative. During interview, pt. was capable of following directions, made appropriate eye-contact, and appeared unkempt. Pt.s speech was at a normal rate. Pt.s mood was elevated. SW explored pt.s hx of mental health and substance abuse. Pt. reported no hx of mental health, substance abuse, suicidal or homicidal ideation. Pt. denies auditory hallucinations, visual hallucinations, paranoia, or delusions. SW explored pt.s living situation. Per pt., he lives with his sister in a motel [[address] [address]]. Per EMR, pt. lives with . Pt. stated that he is no longer living with his and stays with his sister. Pt. mentioned that the motel is a penitentiary program. Pt. stated that it is a program called [facility] [a program that provides penitentiary, housing and services to homeless people]. Pt. stated that he feels safe there. Per pt., he reports having adequate support from his sister. Pt. stated that he uses a wheelchair due to his foot amputation. He is independent with ADLs and his sister helps as needed. Pt. has no questions or concerns at this time. Plan: SW provided available resources and pt. rejected. Once discharge, per pt., he will return to his home [[address] [place] [address]].
--- NOTE | 2021-10-22 15:36 | NUR ---
MS PAPER SALES REPRESENTATIVE NOTES PATIENT WAS SEEN BY DOCTOR MAEGAN AND ORDERED PATIENT FOR DISCHARGE TO HOME WITH HOME HEALTH. DISCHARGE INSTRUCTION AND EDUCATION PROVIDED TO THE PATIENT AND EXPLAINED MEDICATIONS AND PRESCRIPTIONS. PATIENT VERBALIZED UNDERSTANDING. DISCHARGE FORM AND BELONGINGS LIST FORM SIGNED BY THE PATIENT BUT LOST 1 BLACK WHEELCHAIR. CASE MANAGEMENT IS STILL WORKING FOR PATIENT'S HOME HEALTH BUT PATIENT WANTS TO GO HOME AND NOT WILLING TO WAIT. PICC LINE IN PLACED FOR IV ANTIBIOTIC MEDICATION AT HOME. NAME WRIST BAND REMOVED. ACCOMPANIED PATIENT TO THE LOBBY VIA WHEELCHAIR IN STABLE CONDITION. PATIENT WAS PICKED UP BY [facility] AND LEFT VIA PRIVATE CAR. MD AND CHARGE NURSE ARE AWARE OF THE DISCHARGE.
[2021-10-22] MEDS ORDERED: VANCOMYCIN 500 MG in IV D5W 100ml IV SCH (18:00)
== END 2021-10-22 15:52 | disposition home health service (06) | DRG 349 ==
LOC: ER 03:51 → TRANSITION 09:53 → TELE 18:20 → MED 20:59
PROVIDERS: ADMIT Internal Medicine; ATTEND Nurse Practitioner Acute Care
PROC: 0JBR0ZZ Excision of Left Foot Subcutaneous Tissue and Fascia, Open Approach (ICD-10-PCS; principal; 2021-10-18)
PROC: 02HV33Z Insertion of Infusion Device into Superior Vena Cava, Percutaneous Approach (ICD-10-PCS; 2021-10-19)
PROC: B548ZZA Ultrasonography of Superior Vena Cava, Guidance (ICD-10-PCS; 2021-10-19)
DX: T87.44 Infection of amputation stump, left lower extremity (principal); N17.0 Acute kidney failure with tubular necrosis; E11.00 Type 2 diabetes mellitus with hyperosmolarity without nonketotic hyperglycemic-hyperosmolar coma (NKHHC); L02.11 Cutaneous abscess of neck; M86.172 Other acute osteomyelitis, left ankle and foot; E11.22 Type 2 diabetes mellitus with diabetic chronic kidney disease; B95.62 Methicillin resistant Staphylococcus aureus infection as the cause of diseases classified elsewhere; L97.529 Non-pressure chronic ulcer of other part of left foot with unspecified severity; L02.612 Cutaneous abscess of left foot; E11.40 Type 2 diabetes mellitus with diabetic neuropathy, unspecified; E11.69 Type 2 diabetes mellitus with other specified complication; E11.621 Type 2 diabetes mellitus with foot ulcer; E11.622 Type 2 diabetes mellitus with other skin ulcer; E11.65 Type 2 diabetes mellitus with hyperglycemia; L03.116 Cellulitis of left lower limb; Z79.4 Long term (current) use of insulin; Z79.84 Long term (current) use of oral hypoglycemic drugs; Z79.899 Other long term (current) drug therapy; E11.51 Type 2 diabetes mellitus with diabetic peripheral angiopathy without gangrene; Z89.432 Acquired absence of left foot; I12.9 Hypertensive chronic kidney disease with stage 1 through stage 4 chronic kidney disease, or unspecified chronic kidney disease; N18.9 Chronic kidney disease, unspecified; Z91.14 Patient's other noncompliance with medication regimen; Z91.19 Patient's noncompliance with other medical treatment and regimen; L02.91 Cutaneous abscess, unspecified; Y83.5 Amputation of limb(s) as the cause of abnormal reaction of the patient, or of later complication, without mention of misadventure at the time of the procedure; Y92.009 Unspecified place in unspecified non-institutional (private) residence as the place of occurrence of the external cause
CPT/HCPCS: 36415; 71045-TC; 73630-TC; 73718-TC; 80048-TC; 80202-TC; 81001; 82570-TC; 82962-TC; 83605-TC; 83735-TC; 83970; 84100-TC; 84155-TC; 84484-TC; 85025-TC; 85652-TC; 86140-TC; 87040-TC; 87070-TC; 87081-TC; 87806; 88304-TC; A4217; A6253; A6403; A6407; C9803; G0378; J0330; J0690; J0696; J1815; J2270; J2370; J2405; J2704; J3010; J3370; J3490; J7030; J7040; J7060

== ENCOUNTER 2021-10-31 15:50 | Emergency (ER) | payer OTHER ==
[~2021-10-31] VITALS: Ht 175.3 cm; Wt 92.5 kg
[~2021-10-31 15:50] MED LIST: CEFT2FRO2 IV; GABA-536 PO; INSU100I26 SQ; LISI10TA29 PO; METF-442 PO; VANC1PLA9 IV
--- NOTE | 2021-10-31 16:22 | NUR ---
called nursing steam distribution supervisor for picc line placement
--- NOTE | 2021-10-31 16:52 | NUR ---
PICCLINE NURSE AT BEDSIDE FOR INSERTION
--- NOTE | 2021-10-31 18:50 | NUR ---
Patient discharged to home in stable condition. Written and verbal after care instructions given. Patient verbalizes understanding of instruction.
[2021-10-31 18:51] VITALS: BP 155/101
== END 2021-10-31 18:52 | disposition home or self-care (01) ==
LOC: ER 17:12
DX: Z45.2 Encounter for adjustment and management of vascular access device (principal); I10 Essential (primary) hypertension; E11.9 Type 2 diabetes mellitus without complications; F17.200 Nicotine dependence, unspecified, uncomplicated; Z98.890 Other specified postprocedural states; Z79.899 Other long term (current) drug therapy; Z79.4 Long term (current) use of insulin; Z79.84 Long term (current) use of oral hypoglycemic drugs
CPT/HCPCS: 71045-TC; 73060-TC

== ENCOUNTER 2021-11-05 07:44 | Emergency (ER) | payer OTHER ==
[~2021-11-05] VITALS: Ht 175.3 cm; Wt 92.5 kg
--- NOTE | 2021-11-05 07:44 | NUR ---
PT BIB SELF FOR IV ANTIBIOTIC TX. PT IS AAOX4, NOT IN RESPIRATORY DISTRESS, V/S STABLE, KEPT RESTED AND COMFORTABLE. WILL CONTINUE TO MONITOR.
--- NOTE | 2021-11-05 08:02 | NUR ---
SEEN AND EXAMINED BY .
[2021-11-05] MEDS: CEFTRIAXONE 2 G in IV D5W 100 ML IV ONE (08:23)
[2021-11-05] MEDS ORDERED: VANCOMYCIN HCL IV ONE (08:30)
[2021-11-05] MEDS ORDERED: D5W IV ONE (08:30)
[2021-11-05] MEDS ORDERED: CEFTRIAXONE 2 G in IV D5W 50 ML IV ONE (08:30)
[2021-11-05] MEDS: VANCOMYCIN 2 GM in IV D5W 500 ML IV ONE (09:01)
--- NOTE | 2021-11-05 12:26 | NUR ---
CALLED TOUR SALES REPRESENTATIVE TO SEE PT.
--- NOTE | 2021-11-05 12:30 | NUR ---
PT GIVEN PHONE NUMBER OF [facility] TO CALL TO ADMINISTER ANTIBIOTICS. [facility] [phone]
--- NOTE | 2021-11-05 12:35 | NUR ---
"SS Consult: SS Consult requested for homelessness. The pt. is a 41-year-old male patient who presented to the ED to follow up with pending antibiotic Tx. Upon SS consult, the pt. is Alert & Oriented x 4 and makes good eye contact. The pt. appears well-groomed, and speech is clear. Pt. has euthymic mood and affect. NUVIA explored pt.s living situation. Per pt. at the moment he is staying with his sister in a motel located at [[address] [place] [address]] provided by [facility]. NUVIA explored pt.s drug & ETOH use. Pt. denies drug or alcohol use. NUVIA explored pt.s mental health Hx. Pt. denies Hx. of mental illness. Pt. denies current SI/HI and denies hallucinations. Per pt. he is currently not ambulatory due to his left leg cellulitis & independent with all his ADLs. Pt. departed on wheelchair. Plan: Pt. stated he would return to live with his sister at [[address] [place] [address]] NUVIA provided pt. a TAP card and pt. accepted it. Pt. was connected to [facility] [phone] to provide IV antibiotics at home. Pt. stated he will call them. NUVIA provided pt. with homeless resources and pt. refused them. Pt. signed homeless waiver and it was placed in the chart. Year-round shelters: [facility] [address], [place] [address] ; [facility] [address] [place] [address]; [facility] [id number] [facility] [address] Winter Shelters: SPA 2 | [facility]: [facility] Address: Confidential (call for location ) Population Served: Coed # of Beds: 57 SPA 4 | [facility] Provider: [facility] Address: [address] [place] [address] # of Beds: 49 Population Served: Coed SPA 6 | [facility] Provider: [facility] Last Address: [address] [facility], [address] # of Beds: 49 Population Served: Coed [facility] Provider: Puneet ALFORD Address: [address] [facility] [address] # of Beds: 20 Population Served: Women ZOE Facility Provider: [facility] Last Address: [address] [facility] [address] # of Beds: 30 Population Served: Women SPA 8 | [facility] Provider: Analy of Lissa Address: [address] [facility] [address] # of Beds: 65 Population Served: Coed Hygiene: [facility] [address] [facility] ; [facility] [address] [facility] [place] ; [facility] [address] [facility] [place] . Food Resources: [facility] [facility] at [facility]- [address] [facility]; Meet Each Need with Dignity ([facility]) [address] [facility]; [facility] Food [facility] [address] [facility]; [facility] [address] [facility]. Mental Health resources provided: [facility] [address] [place], [place] [phone] ; [facility] [address] [facility] [address], [place] [address] ; [facility]a [facility] [address] [place] [address] ; [facility] [address] [place], [place] [id number] Healthcare Clinics: [facility] [address] [facility], [address] [place]. [place] ; [facility] [address] [facility] [address] [place] [address]; [facility] [place] [address] [facility]. [place] [address] [phone] Counseling--Outpatient [facility] [address] [facility], [place] [address] (Specializes in in-depth psychotherapy for emotional distress: anxiety, depression, interpersonal conflicts, life transitions, childhood abuse) [facility] [address] [place], [place] [phone] (Assist with solving problem marital difficulties, separation & divorce, aging parents, & grief, chronic & terminal illness) [facility] [address] [place] [address] (Deal with loss & grief, anxiety, marital difficulties) Homebound/Mental Health Services [address] [facility] [address] [place] [address] (Provide in-home mental services to people who are incapable of leaving their homes) [facility] of the Elderly Senior Service/Resource Center [address] [place] [address] [facility] [address] [place] [address] PSYCHIATRIC OUTPATIENT SERVICES [facility] Partial Hospitalization and Intensive Outpatient Program (Managed Care and [place] Only)[address] [facility] [phone] [facility] Partial Hospitalization and Outpatient [id number] NewcastleCritical access hospital. [address] [place], [place] [phone] [facility] [id number] [facility] [address] [place], [place] [phone] [facility] Partial Hospitalization and Outpatient [id number] [place], [phone] Substance Abuse resources provided included: [facility] Substance Abuse Self-Helpline (SAS) ; C[facility]LP [address] [facility]. [place]. [place] [address] ; [facility] [place] [address] [facility] [address] ; [facility] Rehabilitation Program [address] Newcastle[address] [place] [address] ; [facility] [address] [facility] [phone] ; [facility] [address] [facility] [address] ; [facility] [address] [facility] [phone] ; [facility] Substance Abuse Helpline(SAS)[facility] ; [facility] ; [facility] [place]; [facility] [place]; [facility] [place]; [facility] [place]; [facility] [place]; [place]; [facility] [place]; [facility] [place]; Alcoholics Anonymous -SFV; Jz-Ewqd-Amzddrx ; Marijuana Anonymous -SFV; Narcotics Anonymous www.na.org;"
--- NOTE | 2021-11-05 13:00 | NUR ---
SW AT BEDSIDE.
--- NOTE | 2021-11-05 13:05 | NUR ---
Patient given written and verbal discharge instructions. Patient verbalizes understanding of instructions. Patient is ambulatory with steady gait. Refuses offer of [facility] placement. Patient given list of available shelters in surrounding area.
[2021-11-05 13:06] VITALS: BP 135/71
== END 2021-11-05 13:07 | disposition home or self-care (01) ==
LOC: ER 07:47
DX: Z76.89 Persons encountering health services in other specified circumstances (principal); E11.69 Type 2 diabetes mellitus with other specified complication; M86.9 Osteomyelitis, unspecified; I10 Essential (primary) hypertension; Z98.890 Other specified postprocedural states; F17.200 Nicotine dependence, unspecified, uncomplicated; Z79.899 Other long term (current) drug therapy; Z79.84 Long term (current) use of oral hypoglycemic drugs; Z79.4 Long term (current) use of insulin
CPT/HCPCS: 96365; 96366; 96367; 99284; J0696; J3370; J7060 ×2

== ENCOUNTER 2021-11-26 18:18 | Inpatient (IN) | payer OTHER ==
[~2021-11-26] VITALS: Ht 175.3 cm; Wt 86.2 kg
--- NOTE | 2021-11-26 18:54 | NUR ---
BIB GIRLFRIEND C/O L UPPER EXTREMITY PAIN X 2 DAYS. PAIN RATED 10/10. PICC LINE ON AFFECTED EXTREMITY. AAOX4, BREATHING EVEN AND UNLABORED. WILL CONTINUE TO MONITOR.
[2021-11-26] MEDS ORDERED: D5W IV ONE ×2 (19:30→20:00)
[2021-11-26] MEDS ORDERED: KETOROLAC TROMETHAMINE INJ 30 MG/ML VIAL IV ONE (19:30)
[2021-11-26] MEDS ORDERED: CEFTRIAXONE 2 G in IV D5W 50 ML IV ONE (19:30)
[2021-11-26] MEDS ORDERED: CEFTRIAXONE 1GM BAG (ER ONLY) 50 ML IV ONE (19:30)
[2021-11-26] MEDS ORDERED: VANCOMYCIN HCL IV ONE (19:30)
[2021-11-26] MEDS ORDERED: KETOROLAC TROMETHAMINE 15 MG/ML VIAL ONE (19:31)
--- NOTE | 2021-11-26 19:49 | NUR ---
ULTRASOUND AT BEDSIDE
[2021-11-26] MEDS ORDERED: VANCOMYCIN IV ONE (20:00)
--- NOTE | 2021-11-26 20:07 | NUR ---
BIAZZI NITRATOR OPERATOR AT PT'S BEDSIDE
--- NOTE | 2021-11-26 20:32 | NUR ---
PATIENT IS STILL IN SEVERE PAIN. DR COLON MADE AWARE
--- NOTE | 2021-11-26 20:39 | NUR ---
PT SEEN BY MONALISA ESCALERA
[2021-11-26 20:51] LABS: BASOPHILS # (AUTO) 0.1 K/uL (0.0-0.2); EOSINOPHILS % (AUTO) 0.3 % (0.0-6.0); HEMATOCRIT 43 % (39-51); HEMOGLOBIN 14.2 g/dL (13.5-17.5); LYMPHOCYTES # (AUTO) 1.1 K/uL (0.8-4.8); LYMPHOCYTES % (AUTO) 8.9 % (20.0-44.0); MEAN CORPUSCULAR HGB CONC 33 g/dl (31.0-36.0); MEAN CORPUSCULAR VOLUME 79 fL (80-96); MONOCYTES % (AUTO) 8.7 % (2.0-12.0); NEUTROPHILS # (AUTO) 9.7 K/uL (1.8-8.9); NEUTROPHILS % (AUTO) 81.1 % (43.0-81.0); PLATELET COUNT (AUTO) 318 K/uL (150-450); RED BLOOD CELL COUNT(AUTO) 5.47 MIL/uL (4.5-6.0); WHITE BLOOD COUNT (AUTO) 11.9 K/uL (4.3-11.0)
--- NOTE | 2021-11-26 21:05 | NUR ---
COVID ANTIGEN SWAB SENT TO LAB
[2021-11-26] MEDS ORDERED: MORPHINE SULFATE INJ 4 MG/ML DISP.SYRIN ONE (21:16)
[2021-11-26] MEDS ORDERED: MAGNESIUM HYDROXIDE 30 ML UDC PO PRN (21:30)
[2021-11-26] MEDS ORDERED: DEXTROSE 50%-WATER 50 ML DISP.SYRIN IV PRN (21:30)
[2021-11-26] MEDS ORDERED: TEMAZEPAM 15 MG CAPSULE PO PRN (21:30)
[2021-11-26] MEDS ORDERED: Z GUARD REMEDY 4 OZ OINT TP PRN (21:30)
[2021-11-26] MEDS ORDERED: ONDANSETRON HCL/PF 4 MG/2 ML VIAL IVP PRN (21:30)
[2021-11-26] MEDS ORDERED: MORPHINE SULFATE INJ 2 MG/ML DISP.SYRIN IV ONE (21:30)
[2021-11-26] MEDS ORDERED: MAG HYDROX/AL HYDROX/SIMETH 30 ML UDC PO PRN (21:30)
[2021-11-26] MEDS ORDERED: ACETAMINOPHEN 325 MG TABLET PO PRN (21:30)
[2021-11-26 23:31] LABS: ALBUMIN 1.9 g/dL (3.4-5.0); CREATININE 1.8 mg/dL (0.6-1.3); POTASSIUM 4.2 mmol/L (3.5-5.1); TOTAL PROTEIN, SERUM 8.4 g/dL (6.4-8.2)
--- NOTE | 2021-11-26 23:45 | NUR ---
BED GIVEN [id number]
--- NOTE | 2021-11-26 23:56 | NUR ---
REPORT GIVEN TO JUSTA PortilloW RN FOR BENJA
--- NOTE | 2021-11-27 00:27 | NUR ---
TRANSFERRED PT TO 313
[2021-11-27] MEDS: BLOOD SUGAR DIAGNOSTIC 1 EACH STRIP IN SCH ×5 (00:53→21:12)
[2021-11-27] MEDS: INSULIN REGULAR, HUMAN 100 UNIT/ML 3 ML VIAL SQ PRN ×5 (00:59→21:32)
[2021-11-27] MEDS: ENOXAPARIN SODIUM 40 MG/0.4 ML DISP.SYRIN SQ SCH ×2 (01:00→21:12)
[2021-11-27] MEDS: IV NS 0.9% 1,000 ML IV PRN ×2 (01:07→17:28)
[2021-11-27] MEDS: HYDROCODONE/APAP 5/325MG TABLET PO PRN ×2 (01:07→08:39)
[2021-11-27 01:43] VITALS: BP 164/98
[2021-11-27 04:23] LABS: BILIRUBIN,TOTAL 0.4 mg/dL (0.2-1.0)
--- NOTE | 2021-11-27 05:50 | NUR ---
ENDING NOTES: arrived on the floor from ER from a SNF at 0030 [facility] alert and orientated X$ wheelchair from the facility with him DX Osteomyelitis left foot..s/p ampitation of the toes phot placed in the chart approx 2 inch open sore on the ball of the foot with dressing falling off. wound cleaned and redressed picline dressing loose and dirty removed the dressing carfully and sterile conditions dressing changed per protocol IV started as ordered bilateral hands abrasians/ scabbed and some raw. wound consult to see.
--- NOTE | 2021-11-27 07:20 | NUR ---
MS RN OPENING NOTE PATIENT ON BED ASLEEP BUT RESPONSIVE TO CALL, HE IS ALERT AND ORIENTED X 4. PATIENT IS ON ROOM AIR WITH NO SIGNS OF DISTRESS. WITH LEFT ARM PICC LINE SINCE ADMISSION, WITH IVF NS RUNNING AT 75ML/HR, INFUSING WELL. PATIENT WITH LEFT FOOT DRESSING, DRY AND INTACT. COMPLAINED OF SOME DISCOMFORT ON THE LEFT ARM SINCE ADMISSION. ON PAIN MANAGEMENT. PROVIDED WITH CALM AND QUIET ENVIRONMENT. SAFETY MEASURES IN PLACED. CALL LIGHT WITHIN REACH. BED ON LOWEST LOCKED POSITION, SIDE RAILS UP X2. WILL CONTINUE TO MONITOR PATIENT.
[2021-11-27 07:39] LABS: BASOPHILS # (AUTO) 0.1 K/uL (0.0-0.2); BASOPHILS % (AUTO) 0.7 % (0.0-2.0); EOSINOPHILS % (AUTO) 1.4 % (0.0-6.0); HEMATOCRIT 38 % (39-51); HEMOGLOBIN 13.1 g/dL (13.5-17.5); LYMPHOCYTES # (AUTO) 1.9 K/uL (0.8-4.8); LYMPHOCYTES % (AUTO) 22.8 % (20.0-44.0); MEAN CORPUSCULAR HGB CONC 34 g/dl (31.0-36.0); MEAN CORPUSCULAR VOLUME 79 fL (80-96); MONOCYTES # (AUTO) 0.9 K/uL (0.1-1.30); NEUTROPHILS # (AUTO) 5.3 K/uL (1.8-8.9); NEUTROPHILS % (AUTO) 64.1 % (43.0-81.0); PLATELET COUNT (AUTO) 293 K/uL (150-450); RED BLOOD CELL COUNT(AUTO) 4.82 MIL/uL (4.5-6.0); WHITE BLOOD COUNT (AUTO) 8.3 K/uL (4.3-11.0)
[2021-11-27 07:58] LABS: CALCIUM, SERUM 8.2 mg/dL (8.5-10.1); CREATININE 1.5 mg/dL (0.6-1.3); MAGNESIUM 2.1 mg/dL (1.8-2.4); PHOSPHORUS 3.6 mg/dL (2.5-4.9); POTASSIUM 3.6 mmol/L (3.5-5.1)
[2021-11-27 08:00] VITALS: BP 154/98
[2021-11-27] MEDS: PANTOPRAZOLE 40 MG TABLET.DR PO SCH (08:38)
[2021-11-27] MEDS: LISINOPRIL (10MG) 10 MG TABLET PO SCH (08:39)
[2021-11-27] MEDS: VANCOMYCIN 0.75 GM in IV D5W 250 ML IV SCH ×2 (09:26→21:12)
--- NOTE | 2021-11-27 11:25 | NUR ---
SS Consult requested for Homelessness. SW will follow up at a later time.
--- NOTE | 2021-11-27 12:52 | NUR ---
"SS Consult: SS Consult requested for homelessness. The pt. is a 41 -year old male patient who admitted to [facility] due to upper extremity pain. Upon SS consult, the pt. is Alert & Oriented x 4 and makes avoidant eye contact. The pt. appears unkempt and is pleasant. Pt.s speech is clear and has depressed mood and affect. NUVIA explored pt.s living situation. Per pt. he has been experiencing homelessness for the last two weeks. Patient stated he was evicted from the hotel [[address] [place] [place] [id number]] initially provided by [facility] as they stated he needed a higher level of care. Patient stated when e was initially discharged from [facility] he was offered SNF placement but refused because he thought they would let him stay at the hotel. SW explored pt.s drug & ETOH use. Pt. denies drug or alcohol use. SW explored pt.s mental health Hx. Pt. admits being diagnosed with a psychiatric illness but cannot recall the name. Pt. denies current SI/HI and denies visual hallucinations. 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 SW explored pt.s support system. Pt. states he has a supportive girlfriend and has his sister and refused to provide their contact information. Plan: Per EMR, CM is working on SNF placement for pt. SW provided pt. with homeless resources and pt. refused them. Pt. signed homeless waiver and it was placed in the chart. Year-round shelters: [facility] [address], [place] [id number] ; [facility] [address] [place] [address]; [facility] [address] [facility] [address] Winter Shelters: SPA 2 | [facility] [place]: [facility] Address: Confidential (call for location ) Population Served: Coed # of Beds: 57 SPA 4 | [facility] Provider: [facility] Address: [address] [place] [address] # of Beds: 49 Population Served: Coed SPA 6 | [facility] Provider: [facility]: [address] [facility] [facility] [address] # of Beds: 49 Population Served: Coed [facility] Provider: Pnueet ALFORD Address: [address] [facility] [address] # of Beds: 20 Population Served: Women ZOE Facility Provider: [facility] Address: [address] [facility] [address] # of Beds: 30 Population Served: Women SPA 8 | [facility] Provider: [facility] Address: [address] [facility] [address] # of Beds: 65 Population Served: Coed Hygiene: [facility] [address] [place] [facility] ; [facility] [address] [facility] ; [facility] [address] [facility] . Food Resources: [facility] [facility] at [facility]- [address] [facility]; Meet Each Need with Dignity ([facility]) [address] [facility]; [facility] Food [facility] [address] [facility]; [facility] [address] [facility]. Mental Health resources provided: [facility] [address] [place] [address] ; [facility] [address] [facility] [address], [place] [address] ; Yenny Issa [facility] [address] [place] [address] ; [facility] [address] [place] [address] Healthcare Clinics: [facility] [address] [place] [facility] [address] [place]. [place] ; [facility] [address] [facility] [address] [place] [address]; [facility] [place] [address] [facility] [place] [phone]) [phone] Counseling--Outpatient [facility] [address] [facility], [place] [address] (Specializes in in-depth psychotherapy for emotional distress: anxiety, depression, interpersonal conflicts, life transitions, childhood abuse) [facility] [address] [place] [address] (Assist with solving problem marital difficulties, separation & divorce, aging parents, & grief, chronic & terminal illness) [facility] [address] [place] [address] (Deal with loss & grief, anxiety, marital difficulties) Homebound/Mental Health Services [address] [facility] [address] [place] [address] (Provide in-home mental services to people who are incapable of leaving their homes) [facility] of the Elderly Senior Service/[facility] [address] [place] [address] [facility] [address] [place] [facility] [place] [address] PSYCHIATRIC OUTPATIENT SERVICES [facility] Partial Hospitalization and Intensive Outpatient Program (Managed Care and [place] Only)[address] [place] Bharat. [facility] [phone] [facility] Partial Hospitalization and Outpatient [id number] [facility] [address] [place], [place] [phone] [facility] [id number] [facility] [address] [place], [place] [phone] [facility] Partial Hospitalization and Outpatient [id number] [facility] FedericoBOWLEGS, [phone] Substance Abuse resources provided included: [facility] Substance Abuse Self-Helpline ([facility]) ; [facility]LP [address] [facility]. [place] [id number] ; [facility] [place] [address] [facility] [address] ; [facility] [address] [facility] [phone] ; [facility] [address] [facility] [address] ; [facility] [address] [place] [facility] [address] ; [facility] [address] [facility] [phone] ; [facility] Substance Abuse Helpline([facility] ; [facility] ; [facility] [place]; [facility] [place]; [facility] [place]; [facility] William Caball[place]; [facility] [place]; [facility] [place]; [facility] [place]; [facility] [place]; Alcoholics Anonymous -SFV; Ux-Htsz-[place] ; Marijuana Anonymous -SFV; Narcotics Anonymous www.na.org;"
[2021-11-27 16:00] VITALS: BP 162/96
[2021-11-27] MEDS: HYDROCODONE/APAP 10/325MG TABLET PO PRN (16:59)
--- NOTE | 2021-11-27 18:57 | NUR ---
MS RN CLOSING NOTE PATIENT ON BED ASLEEP BUT RESPONSIVE TO CALL, HE IS ALERT AND ORIENTED X 4. PATIENT IS ON ROOM AIR WITH NO SIGNS OF DISTRESS. WITH LEFT ARM PICC LINE SINCE ADMISSION, WITH IVF NS RUNNING AT 75ML/HR, INFUSING WELL. PATIENT WITH LEFT FOOT DRESSING, DRY AND INTACT. COMPLAINED OF SOME DISCOMFORT ON THE LEFT ARM SINCE ADMISSION. ON PAIN MANAGEMENT. PROVIDED WITH CALM AND QUIET ENVIRONMENT. SAFETY MEASURES IN PLACED. CALL LIGHT WITHIN REACH. BED ON LOWEST LOCKED POSITION, SIDE RAILS UP X2. WILL ENDORSE TO NEXT SHIFT FOR CONTINUITY OF CARE.
[2021-11-27 20:00] VITALS: BP 141/92
[2021-11-27] MEDS: INSULIN GLARGINE, 100 UNIT/ML CARTRIDGE SQ SCH (21:31)
[2021-11-28] MEDS: HYDROCODONE/APAP 10/325MG TABLET PO PRN ×4 (00:57→19:54)
[2021-11-28] MEDS: INSULIN REGULAR, HUMAN 100 UNIT/ML 3 ML VIAL SQ PRN ×3 (06:02→22:06)
[2021-11-28 06:24] LABS: BASOPHILS # (AUTO) 0.1 K/uL (0.0-0.2); BASOPHILS % (AUTO) 0.9 % (0.0-2.0); EOSINOPHILS % (AUTO) 0.8 % (0.0-6.0); HEMATOCRIT 38 % (39-51); HEMOGLOBIN 12.5 g/dL (13.5-17.5); LYMPHOCYTES % (AUTO) 18.9 % (20.0-44.0); MEAN CORPUSCULAR HGB CONC 33 g/dl (31.0-36.0); MEAN CORPUSCULAR VOLUME 80 fL (80-96); MONOCYTES # (AUTO) 0.8 K/uL (0.1-1.30); MONOCYTES % (AUTO) 7.6 % (2.0-12.0); NEUTROPHILS # (AUTO) 7.4 K/uL (1.8-8.9); NEUTROPHILS % (AUTO) 71.8 % (43.0-81.0); PLATELET COUNT (AUTO) 289 K/uL (150-450); RED BLOOD CELL COUNT(AUTO) 4.79 MIL/uL (4.5-6.0); WHITE BLOOD COUNT (AUTO) 10.4 K/uL (4.3-11.0)
--- NOTE | 2021-11-28 06:25 | NUR ---
MS RN NOTES AWAKE & RESPONSIVE. NOT IN ANY DISTRESS. NO SOB NOTED. DENIES ANY PAIN OR DISCOMFORT AT THIS TIME. MONITORED ACCORDINGLY. CALL LIGHT WITHIN REACH. BED IN LOWEST POSITION. SR UP X2 FOR SAFETY. WILL ENDORSE TO NEXT SHIFT.
[2021-11-28] MEDS: BLOOD SUGAR DIAGNOSTIC 1 EACH STRIP IN SCH ×4 (07:04→22:02)
--- NOTE | 2021-11-28 07:21 | NUR ---
MS RN OPENING NOTE PATIENT ON BED ASLEEP BUT RESPONSIVE TO CALL, HE IS ALERT AND ORIENTED X 4. PATIENT IS ON ROOM AIR WITH NO SIGNS OF DISTRESS. WITH LEFT ARM PICC LINE, WITH IVF NS RUNNING AT 75ML/HR, INFUSING WELL. PATIENT WITH LEFT FOOT DRESSING, DRY AND INTACT. COMPLAINED OF SOME DISCOMFORT ON THE LEFT ARM. ON PAIN MANAGEMENT. PROVIDED WITH CALM AND QUIET ENVIRONMENT. SAFETY MEASURES IN PLACED. CALL LIGHT WITHIN REACH. BED ON LOWEST LOCKED POSITION, SIDE RAILS UP X2. WILL CONTINUE TO MONITOR PATIENT.
[2021-11-28] MEDS: PANTOPRAZOLE 40 MG TABLET.DR PO SCH (08:10)
[2021-11-28] MEDS: LISINOPRIL (10MG) 10 MG TABLET PO SCH (08:11)
[2021-11-28 08:15] VITALS: BP 125/72
--- NOTE | 2021-11-28 08:15 | NUR ---
MS RN NOTE PATIENT SEEN BY DR. SANCHEZ. WILL CONTINUE TO MONITOR PATIENT.
--- NOTE | 2021-11-28 08:21 | NUR ---
WOUND CARE CONSULT: PT PRESENTS WITH DRY INTACT DRESSING TO LEFT FOOT. ADMISSION PHOTO SHOWS OPEN ULCER TO LEFT FOOT, PRESENT ON ADMISSION.PT ALSO NOTED TO HAVE SCALP WOUND, PRESENT ON ADMISSION. RECOMMENDATIONS MADE FOR SKIN PROTECTION AND WOUND CARE FOR SCALP WOUND. DISCUSSED WITH NURSING STAFF. SURGICAL CONSULT CALLED TO DR KIMBERLEY STANLEY AND DPM CONSULT TO DR HAMPAPUR. FLOREZ IN AGREEMENT WITH PLAN OF CARE.
[2021-11-28] MEDS: VANCOMYCIN 0.75 GM in IV D5W 250 ML IV SCH ×2 (09:07→20:10)
[2021-11-28] MEDS: CADEXOMER IODINE 40 GM TUBE TP SCH (09:23)
--- NOTE | 2021-11-28 09:43 | NUR ---
MS RN NOTE PATIENT SEEN BY THE DRAPERY CUTTER DHEERAJ. WILL CONTINUE TO MONITOR PATIENT.
--- NOTE | 2021-11-28 13:19 | NUR ---
MS RN NOTE PATIENT SEEN BY DR. BONILLA, SERIAL EXICSIONAL WOUND DEBRIDEMENT OF THE LEFT LOWER EXTREMITY CONSENT SECURED AND ATTACHED TO CHART. PROCEDURE DONE AND TOLERATED WELL. IN STABLE CONDITION. WILL CONTINUE TO MONITOR PATIENT.
[2021-11-28 16:33] VITALS: BP 149/99
--- NOTE | 2021-11-28 19:15 | NUR ---
MS RN CLOSING NOTE PATIENT ON BED ASLEEP BUT RESPONSIVE TO CALL, HE IS ALERT AND ORIENTED X 4. PATIENT IS ON ROOM AIR WITH NO SIGNS OF DISTRESS. WITH LEFT ARM PICC LINE, WITH IVF NS RUNNING AT 75ML/HR, INFUSING WELL. PATIENT WITH LEFT FOOT DRESSING, DRY AND INTACT. COMPLAINED OF SOME DISCOMFORT ON THE LEFT ARM. ON PAIN MANAGEMENT. PROVIDED WITH CALM AND QUIET ENVIRONMENT. SAFETY MEASURES IN PLACED. CALL LIGHT WITHIN REACH. BED ON LOWEST LOCKED POSITION, SIDE RAILS UP X2. WILL ENDORSE PATIENT FOR CONTINUITY OF CARE.
--- NOTE | 2021-11-28 19:42 | NUR ---
MS RN OPENING RECEIVED PATIENT IN BED WITH EYES CLOSED, EASY TO AROUSE. NO S/S OF APPARENT DISTRESS ON ROOM AIR. C/O 10/10 PAIN ON L. ARM. L.UA PICC LINE - NS NOT RUNNING AT THIS TIME. SAFETY IN PLACE. WILL CONTINUE WITH PLAN OF CARE FOR PATIENT.
--- NOTE | 2021-11-28 19:56 | NUR ---
MS RN NOTE NORCO 10 GIVEN AT THIS TIME FOR SEVERE PAIN.
[2021-11-28 20:00] VITALS: BP 160/110
[2021-11-28] MEDS: ENOXAPARIN SODIUM 40 MG/0.4 ML DISP.SYRIN SQ SCH (21:38)
[2021-11-28] MEDS: INSULIN GLARGINE, 100 UNIT/ML CARTRIDGE SQ SCH (22:04)
--- NOTE | 2021-11-28 23:00 | NUR ---
MS RN NOTE BP 160/110 MESSAGED BLUEBERRY GROWER DOCTOR, DR. SHELDON IF HE WANTS PRN ORDERED. AWAITING FOR NEW ORDERS.
[2021-11-29] MEDS: HYDROCODONE/APAP 10/325MG TABLET PO PRN ×3 (04:00→21:47)
[2021-11-29] MEDS: IV NS 0.9% 1,000 ML IV PRN (05:36)
[2021-11-29] MEDS: BLOOD SUGAR DIAGNOSTIC 1 EACH STRIP IN SCH ×4 (06:41→21:10)
[2021-11-29] MEDS: INSULIN REGULAR, HUMAN 100 UNIT/ML 3 ML VIAL SQ PRN ×4 (06:41→21:43)
--- NOTE | 2021-11-29 06:41 | NUR ---
MS RN NOTE BS 129. NO COVERAGE NEEDED.
--- NOTE | 2021-11-29 06:58 | NUR ---
MS RN CLOSING NOTE PATIENT IN BED WITH EYES CLOSED. EASY TO AROUSE. NO S/S OF APPARENT DISTRESS ON ROOM AIR. PAIN MANAGED WITH MEDICATIONS. WOUND TREATMENT DONE, DRESSING CHANGED. TYRA PICC RUNNING NS @75CC/HR. ALL NEEDS ATTENDED. ALL SCHEDULED MEDICATIONS ADMINISTERED. NO SIGNIFICANT CHANGE SINCE LAST SHIFT. WILL ENDORSE TO MORNING SHIFT RN FOR CONTINUITY OF CARE.
[2021-11-29 07:22] LABS: CALCIUM, SERUM 8.4 mg/dL (8.5-10.1); CREATININE 1.6 mg/dL (0.6-1.3); POTASSIUM 4.1 mmol/L (3.5-5.1)
--- NOTE | 2021-11-29 07:30 | NUR ---
MS RN OPENING NOTES RECEIVED PATIENT ON BED, AWAKE AND A/O X4. ON ROOM AIR TOLERATING WELL. NO SOB NOTED. NOT IN DISTRESS. WITH NO COMPLAINTS OF PAIN OR DISCOMFORT AT THIS TIME. WITH IV ACCESS AT LEFT UPPER ARM PICC LINE WITH IVF NS AT 75ML/HR INFUSING WELL. SAFETY MEASURES IN PLACED. CALL LIGHT WITHIN REACH. BED ON LOWEST LOCKED POSITION, SIDE RAILS UP X2. WILL CONTINUE TO MONITOR.
[2021-11-29 08:00] VITALS: BP 125/83
[2021-11-29] MEDS: MUPIROCIN OINT 2% 22 GM TUBE NS SCH ×2 (09:00→17:05)
[2021-11-29] MEDS: LISINOPRIL (10MG) 10 MG TABLET PO SCH (09:11)
[2021-11-29] MEDS: PANTOPRAZOLE 40 MG TABLET.DR PO SCH (09:11)
[2021-11-29] MEDS: VANCOMYCIN 0.75 GM in IV D5W 250 ML IV SCH ×2 (09:16→21:10)
[2021-11-29] MEDS: THERAHONEY GEL 1.5 OZ TUBE TP SCH (09:49)
[2021-11-29] MEDS: CADEXOMER IODINE 40 GM TUBE TP SCH (09:49)
[2021-11-29 16:00] VITALS: BP 123/85
--- NOTE | 2021-11-29 19:20 | NUR ---
MS RN OPENING NOTES: RECEIVED REPORT AT PATIENT'S BEDISDE. PATIENT'S EYES CLOSED, RR EVEN AND UNLABORED. NAD AND STABLE. EASILY AROUSED BY VOICE COMMAND. PATIENT C/O LEFT SHOULDER PAIN 8/10 AT REST AND 9/10 WITH MOVEMENT. DENIES CHEST PAIN. LUNG SOUNDS CTA. L UPPER ARM TRIPLE LUMEN PICC, INFUSING NS @75ML/HR. SAFETY MEASURES IN PLACE: BED IN LOW, LOCKED POSITION, SIDE RAILS UP X2, HOB ELEVATED TO SEMI-LEWIS'S POSITION. PATIENT DEMONSTRATES ABILITY TO USE CALL LIGHT AND VERBALIZE NEEDS EFFECTIVELY. CALL LIGHT AND FREQUENTLY USED ITEMS WITHIN REACH.
--- NOTE | 2021-11-29 19:30 | NUR ---
MS RN CLOSING NOTES PATIENT ON BED, RESTING AND A/O X4. ON ROOM AIR TOLERATING WELL. NO SOB NOTED. NOT IN DISTRESS. WITH NO COMPLAINTS OF PAIN OR DISCOMFORT AT THIS TIME. WITH IV ACCESS AT LEFT UPPER ARM PICC LINE WITH IVF NS AT 75ML/HR INFUSING WELL. DUE MEDS GIVEN. SAFETY MEASURES IN PLACED. CALL LIGHT WITHIN REACH. BED ON LOWEST LOCKED POSITION, SIDE RAILS UP X2. WILL ENDORSE TO NEXT SHIFT FOR BENJA.
[2021-11-29] MEDS: MORPHINE SULFATE INJ 2 MG/ML DISP.SYRIN IM PRN (19:39)
--- NOTE | 2021-11-29 19:39 | NUR ---
ADMINISTERED MORPHINE 2MG PER PRN ORDER FOR C/O L FOOT AND L SHOULDER PAIN 05/13.
[2021-11-29 20:00] VITALS: BP 173/105
[2021-11-29] MEDS: ENOXAPARIN SODIUM 40 MG/0.4 ML DISP.SYRIN SQ SCH (21:35)
--- NOTE | 2021-11-29 21:40 | NUR ---
ADMINISTERED NORCO PER PRN ORDER FOR C/O L SHOULDER PAIN 05/13. PATIENT CHARACTERIZES THE PAIN IN HIS MUSCLE, AT TIMES SHARP AND THROBBING, "LIKE A KNIFE IS STICKING ME THERE." PATIENT STATES THIS HAS BEEN PRESENT SINCE ADMISSION AND MD AWARE.
[2021-11-29] MEDS: INSULIN GLARGINE, 100 UNIT/ML CARTRIDGE SQ SCH (21:42)
[2021-11-29 22:50] VITALS: BP 150/103
--- NOTE | 2021-11-29 22:50 | NUR ---
MS RN NOTE: @ 1999 PATIENT'S BP 173/105. ADMINISTERED PRN MORPHINE AND NORCO PER ORDER. ON REASSESSMENT OF ANALGESIC EFFECTIVENESS, RETOOK BP 150/103. NOTIFIED PROVIDER, NN. NO NEW ORDERS.
[2021-11-30] MEDS: MORPHINE SULFATE INJ 2 MG/ML DISP.SYRIN IM PRN ×3 (01:51→17:55)
--- NOTE | 2021-11-30 05:26 | NUR ---
MS RN CLOSING NOTES: PATIENT IN BED, EYES CLOSED, RR EVEN AND UNLABORED, SNORING. NAD AND STABLE. EASILY AROUSED BY VOICE COMMAND. PATIENT C/O LEFT SHOULDER PAIN 8/10 AT REST AND 9/10 WITH MOVEMENT -- MEDICATED WITH PRN ANALGESICS ATC WITH SOME EFFECTIVENESS. DENIES CHEST PAIN. LUNG SOUNDS CTA. L UPPER ARM TRIPLE LUMEN PICC, INFUSING NS @75ML/HR. VOIDS TO URINAL. DRESSING TO L FOOT AND OCCIPITAL SCALP CDI. SAFETY MEASURES IN PLACE: BED IN LOW, LOCKED POSITION, SIDE RAILS UP X2, HOB ELEVATED TO SEMI-LEWIS'S POSITION. PATIENT DEMONSTRATES ABILITY TO USE CALL LIGHT AND VERBALIZE NEEDS EFFECTIVELY. CALL LIGHT AND FREQUENTLY USED ITEMS WITHIN REACH.
[2021-11-30] MEDS: INSULIN REGULAR, HUMAN 100 UNIT/ML 3 ML VIAL SQ PRN ×4 (06:31→21:40)
[2021-11-30] MEDS: PANTOPRAZOLE 40 MG TABLET.DR PO SCH (06:32)
[2021-11-30] MEDS: BLOOD SUGAR DIAGNOSTIC 1 EACH STRIP IN SCH ×4 (06:33→21:32)
[2021-11-30 06:42] LABS: CALCIUM, SERUM 8.4 mg/dL (8.5-10.1); CREATININE 1.6 mg/dL (0.6-1.3); POTASSIUM 4.4 mmol/L (3.5-5.1)
--- NOTE | 2021-11-30 07:27 | NUR ---
RN OPENING NOTE- PT IN BED ASLEEP THOUGH AWAKENS EASILY, RR EVEN AND NON- LABORED . PATIENT C/O LEFT SHOULDER PAIN 8/10 AT REST AND 9/10 WITH MOVEMENT. DENIES CHEST PAIN. LUNG SOUNDS CTA. L UPPER ARM TRIPLE LUMEN PICC, INFUSING NS @75ML/HR. SAFETY MEASURES IN PLACE: BED IN LOW, LOCKED POSITION, SIDE RAILS UP X2, HOB ELEVATED TO SEMI-LEWIS'S POSITION. PATIENT DEMONSTRATES ABILITY TO USE CALL LIGHT AND VERBALIZE NEEDS EFFECTIVELY. CALL LIGHT AND FREQUENTLY USED ITEMS WITHIN REACH. MONITOR / ASSIST
[2021-11-30 08:37] VITALS: BP 146/84
[2021-11-30] MEDS: VANCOMYCIN 0.75 GM in IV D5W 250 ML IV SCH ×2 (08:52→21:26)
[2021-11-30] MEDS: LISINOPRIL (10MG) 10 MG TABLET PO SCH (08:53)
[2021-11-30] MEDS: CADEXOMER IODINE 40 GM TUBE TP SCH (08:53)
[2021-11-30] MEDS: MUPIROCIN OINT 2% 22 GM TUBE NS SCH ×2 (08:53→17:06)
[2021-11-30] MEDS: THERAHONEY GEL 1.5 OZ TUBE TP SCH (08:53)
[2021-11-30] MEDS: HYDROCODONE/APAP 10/325MG TABLET PO PRN ×2 (09:57→21:35)
--- NOTE | 2021-11-30 14:00 | NUR ---
RN DRESSING CHANGE- WOUND CARE TO LT FOOT. CLEANSED W DAKINS/NS, CLEANED AREA TO PLANTAR ASPECT LT FOOT. APPLIED WOUND HONEY PER ORDERS. WRAPPED W KERLIX AND TAPED SECURELY. TOLERATED WELL
[2021-11-30 16:00] VITALS: BP 159/96
[2021-11-30] MEDS: IV NS 0.9% 1,000 ML IV PRN (17:22)
--- NOTE | 2021-11-30 18:51 | NUR ---
RN CLOSING NOTE- PT IN BED , DOZING, PAIN RELIEVED W MSO4 TODAY. RESPIRATIONS EVEN AND NON- LABORED . DENIES CHEST PAIN. LUNG SOUNDS CTA. L UPPER ARM TRIPLE LUMEN PICC, INFUSING NS @75ML/HR. SAFETY MEASURES IN PLACE: BED IN LOW, LOCKED POSITION, SIDE RAILS UP X2, HOB ELEVATED TO SEMI-LEWIS'S POSITION. PATIENT DEMONSTRATES ABILITY TO USE CALL LIGHT AND VERBALIZE NEEDS EFFECTIVELY. CALL LIGHT AND FREQUENTLY USED ITEMS WITHIN REACH. MONITOR / ASSIST
--- NOTE | 2021-11-30 19:45 | NUR ---
MS RN OPENING NOTES RECEIVED PATIENT IN BED, AWAKE, A/OX4, BREATHING EVEN AND UNLABORED; PATIENT UNCOMFORTABLE, PATIENT GRUNTING BUT PER RN, PATIENT RECEIVED MORPHINE AND NO PAIN MEDS DUE AT THIS TIME; PATIENT TOLERATING ROOM AIR WELL; PATIENT HAS DELFINA PICC LINE RUNNING NS @ 75ML/HR, PATIENT TOLERATING IVF WELL; NO S/S OF REDNESS OR INFILTRATION; BED LOCKED IN LOW POSITION; SIDE RAILSX2; CALL LIGHT WITHIN REACH; WILL CONT TO MONITOR AND CONT PLAN OF CARE
[2021-11-30 20:00] VITALS: BP 150/103
--- NOTE | 2021-11-30 21:35 | NUR ---
MS RN NOTES PATIENT REQUESTING PAIN MEDICATION, PATIENT GIVEN NORCO; VITAL SIGNS STABLE; PATIENT REFUSING SKIN ASSESSMENT/PICTURES DUE TO PAIN; PATIENT REPORTED AND VERBALIZED HE JUST WANTS TO SLEEP, "MAYBE TRY AGAIN LATER", CHARGE NURSE IS AWARE
[2021-11-30] MEDS: ENOXAPARIN SODIUM 40 MG/0.4 ML DISP.SYRIN SQ SCH (21:36)
[2021-11-30] MEDS: INSULIN GLARGINE, 100 UNIT/ML CARTRIDGE SQ SCH (21:38)
--- NOTE | 2021-12-01 04:00 | NUR ---
MS RN NOTES PATIENT REFUSING SKIN ASSESSMENT AND PICTURES, PATIENT RE-EDUCATED ON IMPORTANCE OF COMPLIANCE THROUGHOUT HOSPITALIZATION, PATIENT STILL DOES NOT WANT PICTURES DONE, PATIENT VERBALIZED HE JUST WANTS TO REST; CHARGE NURSE AWARE; WILL CONT TO MONITOR
[2021-12-01 05:09] VITALS: BP 149/99
[2021-12-01] MEDS: MORPHINE SULFATE INJ 2 MG/ML DISP.SYRIN IM PRN ×3 (06:18→21:27)
[2021-12-01] MEDS: BLOOD SUGAR DIAGNOSTIC 1 EACH STRIP IN SCH ×4 (06:31→21:39)
--- NOTE | 2021-12-01 06:38 | NUR ---
MS RN CLOSING NOTES PATIENT IS SLEEPING IN BED, A/OX4, ON ROOM AIR, BREATHING EVEN AND UNLABORED; PATIENT REPORTED PAIN LEVEL OF 8 OUT OF 10, MORPHINE GIVEN PER PROTOCOL; PATIENT HAS DELFINA PICC LINE, TOLERATING IVF WELL; BED LOCKED IN LOW POSITION; SIDE RAILS UP X2, CALL LIGHT WITHIN REACH; ALL NEEDS RENDERED; WILL ENDORSE CONTINUITY OF CARE TO ONCOMING SHIFT
--- NOTE | 2021-12-01 07:40 | NUR ---
MS RN OPENING NOTES RECEIVED PATIENT ASLEEP IN BED, EASY TO AROUSE. A/O X 4. NO SOB. NO S/SX OF DISTRESS NOTED. NO C/O PAIN. BREATHING IS EVEN AND UNLABORED, TOLERATING WELL ON ROOM AIR. IV ACCESS DELFINA PICC LINE PATENT AND INTACTWITH NS 0.9% RUNNING AT 75MLS/HR. SAFETY MEASURES IN PLACE WITH BED LOCKED AT LOWEST POSITION, SIDE RAILS UP X2, CALL LIGHT IS WITHIN REACH. WILL CONTINUE TO MONITOR PATIENT THROUGHOUT SHIFT.
[2021-12-01 07:44] LABS: BASOPHILS # (AUTO) 0.1 K/uL (0.0-0.2); BASOPHILS % (AUTO) 1.1 % (0.0-2.0); EOSINOPHILS % (AUTO) 1.6 % (0.0-6.0); HEMATOCRIT 37 % (39-51); HEMOGLOBIN 12.1 g/dL (13.5-17.5); LYMPHOCYTES % (AUTO) 21.6 % (20.0-44.0); MEAN CORPUSCULAR HGB CONC 33 g/dl (31.0-36.0); MEAN CORPUSCULAR VOLUME 79 fL (80-96); MONOCYTES # (AUTO) 0.7 K/uL (0.1-1.30); MONOCYTES % (AUTO) 7.1 % (2.0-12.0); NEUTROPHILS # (AUTO) 6.5 K/uL (1.8-8.9); NEUTROPHILS % (AUTO) 68.6 % (43.0-81.0); PLATELET COUNT (AUTO) 367 K/uL (150-450); RED BLOOD CELL COUNT(AUTO) 4.65 MIL/uL (4.5-6.0); WHITE BLOOD COUNT (AUTO) 9.5 K/uL (4.3-11.0)
[2021-12-01 08:16] LABS: CALCIUM, SERUM 8.7 mg/dL (8.5-10.1); CREATININE 1.5 mg/dL (0.6-1.3); POTASSIUM 4.4 mmol/L (3.5-5.1)
[2021-12-01] MEDS: LISINOPRIL (10MG) 10 MG TABLET PO SCH (08:30)
[2021-12-01] MEDS: VANCOMYCIN 0.75 GM in IV D5W 250 ML IV SCH ×2 (08:30→21:15)
[2021-12-01] MEDS: PANTOPRAZOLE 40 MG TABLET.DR PO SCH (08:30)
[2021-12-01] MEDS: CADEXOMER IODINE 40 GM TUBE TP SCH (08:32)
[2021-12-01] MEDS: THERAHONEY GEL 1.5 OZ TUBE TP SCH (08:32)
[2021-12-01] MEDS: MUPIROCIN OINT 2% 22 GM TUBE NS SCH ×2 (08:32→16:14)
[2021-12-01 08:36] VITALS: BP 144/96
[2021-12-01] MEDS: INSULIN REGULAR, HUMAN 100 UNIT/ML 3 ML VIAL SQ PRN ×3 (11:39→21:39)
[2021-12-01] MEDS: IV NS 0.9% 1,000 ML IV PRN (15:23)
--- NOTE | 2021-12-01 15:54 | NUR ---
RN NOTE PT C/O FOOT PAIN 05/13. ADMINISTERED MORPHINE 2MG IV FOR PAIN. WILL REASSESS FOR EFFECTIVENESS AND WILL MONITOR PT.
[2021-12-01 16:08] VITALS: BP 158/110
--- NOTE | 2021-12-01 18:42 | NUR ---
MS RN CLOSING NOTES PATIENT IN BED WITH EYES CLOSED, EASY TO AROUSE. ABLE TO MAKE NEEDS KNOWN. NO SOB. NO S/SX OF DISTRESS NOTED. NO C/O PAIN. BREATHING IS EVEN AND UNLABORED. IV ACCESS DELFINA PICC LINE PATENT AND INTACT WITH NS 0.9% RUNNING AT 75MLS/HR. WOUND TX DONE. ALL NEEDS MET THROUGHOUT SHIFT. SAFETY MEASURES MAINTAINED. CALL LIGHT IS WITHIN REACH. WILL ENDORSE CONTINUITY OF CARE TO ONCOMING SHIFT.
--- NOTE | 2021-12-01 19:16 | NUR ---
RN OPENING NOTE PATIENT IN BED, EYES CLOSED, EASILY AWAKENED. PATIENT IS A/O X 4 ABLE TO MAKE NEEDS KNOWN. CURRENTLY ON RA, PATIENT TOLERATING WELL AT 97% O2 SATURATION. PATIENT HAS A DELFINA PICCLINE WITH NS @75 ML/HR RUNNING. SAFETY MEASURES IN PLACE: BED LOCKED AND IN LOWEST POSITION, CALL LIGHT WITHIN REACH, SIDE RAILS UP. WILL MONITOR PATIENT CLOSELY.
[2021-12-01 20:00] VITALS: BP 158/96
[2021-12-01] MEDS: ENOXAPARIN SODIUM 40 MG/0.4 ML DISP.SYRIN SQ SCH (21:18)
--- NOTE | 2021-12-01 21:30 | NUR ---
MORPHINE 2 MG ADMINISTERED TO PATIENT D/T PAIN OR L SHOULDER. WILL REASSESS PAIN AT A LATER TIME
[2021-12-01] MEDS: INSULIN GLARGINE, 100 UNIT/ML CARTRIDGE SQ SCH (21:38)
[2021-12-02] MEDS: MORPHINE SULFATE INJ 2 MG/ML DISP.SYRIN IM PRN ×2 (04:52→22:23)
--- NOTE | 2021-12-02 04:57 | NUR ---
morphine given for pain 05/13 on l shoulder. will monitor med effectiveness at a later time.
[2021-12-02] MEDS: IV NS 0.9% 1,000 ML IV PRN ×2 (05:18→22:23)
[2021-12-02] MEDS: INSULIN REGULAR, HUMAN 100 UNIT/ML 3 ML VIAL SQ PRN ×4 (06:02→21:19)
[2021-12-02] MEDS: BLOOD SUGAR DIAGNOSTIC 1 EACH STRIP IN SCH ×4 (06:38→21:15)
--- NOTE | 2021-12-02 06:40 | NUR ---
RN CLOSING NOTE PATIENT IN BED, EYES CLOSED, EASILY AWAKENED. PATIENT IS A/O X 4 ABLE TO MAKE NEEDS KNOWN. CURRENTLY ON RA, TOLERATES WELL. PAIN MANAGED WITH MORPHINE 2MG IV. PATIENT HAS A DELFINA PICCLINE WITH NS @75 ML/HR RUNNING. SAFETY MEASURES IN PLACE: BED LOCKED AND IN LOWEST POSITION, CALL LIGHT WITHIN REACH, SIDE RAILS UP. ALL NEEDS MET AND ATTENDED. ALL ORDERS CARRIED OUT. WILL ENDORSE TO DAY SHIFT NURSE FOR BNEJA.
[2021-12-02 06:49] LABS: BASOPHILS # (AUTO) 0.1 K/uL (0.0-0.2); BASOPHILS % (AUTO) 0.9 % (0.0-2.0); EOSINOPHILS % (AUTO) 2.2 % (0.0-6.0); HEMATOCRIT 37 % (39-51); HEMOGLOBIN 12.3 g/dL (13.5-17.5); LYMPHOCYTES # (AUTO) 2.1 K/uL (0.8-4.8); LYMPHOCYTES % (AUTO) 22.2 % (20.0-44.0); MEAN CORPUSCULAR HGB CONC 33 g/dl (31.0-36.0); MEAN CORPUSCULAR VOLUME 79 fL (80-96); MONOCYTES # (AUTO) 0.5 K/uL (0.1-1.30); MONOCYTES % (AUTO) 5.8 % (2.0-12.0); NEUTROPHILS # (AUTO) 6.5 K/uL (1.8-8.9); NEUTROPHILS % (AUTO) 68.9 % (43.0-81.0); PLATELET COUNT (AUTO) 373 K/uL (150-450); RED BLOOD CELL COUNT(AUTO) 4.68 MIL/uL (4.5-6.0); WHITE BLOOD COUNT (AUTO) 9.4 K/uL (4.3-11.0)
[2021-12-02 07:05] LABS: CALCIUM, SERUM 8.9 mg/dL (8.5-10.1); CREATININE 1.4 mg/dL (0.6-1.3); POTASSIUM 4.3 mmol/L (3.5-5.1)
--- NOTE | 2021-12-02 07:30 | NUR ---
RN OPENING NOTE PATIENT IN BED, ALERT AND ORIENTED X4. RESPONSIVE TO VERBAL AND TACTILE STIMULI. ABLE TO VERBALIZE NEEDS. NO ACUTE DISTRESS NOTED. CURRENTLY ON RA @ 98% SPO2. RESPIRATION EVEN AND UNLABORED. WITH DELFINA PICC LINE, NO S/S OF INFECTION NOTED. WILL CONTINUE TO MONITOR PATIENT THROUGHOUT SHIFT.
[2021-12-02 08:00] VITALS: BP 140/100
[2021-12-02] MEDS: PANTOPRAZOLE 40 MG TABLET.DR PO SCH (08:55)
[2021-12-02] MEDS: LISINOPRIL (10MG) 10 MG TABLET PO SCH (08:55)
[2021-12-02] MEDS: HYDROCODONE/APAP 10/325MG TABLET PO PRN ×2 (09:05→18:58)
[2021-12-02] MEDS: THERAHONEY GEL 1.5 OZ TUBE TP SCH (09:09)
[2021-12-02] MEDS: CADEXOMER IODINE 40 GM TUBE TP SCH (09:09)
[2021-12-02] MEDS: VANCOMYCIN 0.75 GM in IV D5W 250 ML IV SCH ×2 (10:44→21:07)
--- NOTE | 2021-12-02 11:30 | NUR ---
MS RN NOTE PATIENT SEEN BY COURT INTERPRETER. BEDSIDE DEBRIDEMENT PERFORMED WITH SEROSANGUINEOUS DRAINAGE. APPLIED TERAHONEY AND COVERED WITH DRY DRESSING.
[2021-12-02 16:00] VITALS: BP 143/89
--- NOTE | 2021-12-02 18:49 | NUR ---
MS RN CLOSING NOTES RESIDENT IN BED ASLEEP AT THIS TIME. EASILY AROUSABLE. A/OX4. C/O PAIN ON LEFT SHOULDER IN THE MORNING, ADMINISTERED PRN PAIN MED. REASSESSED AND EFFECTIVE. GOOD APPETITE NOTED. HAS DELFINA PICC LINE WITH NS @ 75 ML/HR, INTACT AND INFUSING WELL. ALL MEDS GIVEN AND NEEDS ATTENDED. WOUND CARE PROVIDED. SAFETY MEASURES IN PLACED: BED LOCKED AND IN LOW POSITION, SIDE RAILS UP X2, C/L WITHIN REACH.
--- NOTE | 2021-12-02 19:30 | NUR ---
RN OPENING NOTE PATIENT IN BED,AWAKE. PATIENT IS A/O X 4 ABLE TO MAKE NEEDS KNOWN. CURRENTLY ON RA, TOLERATES WELL. NO COMPLAINS OF PAIN AT THIS TIME. PATIENT HAS A DELFINA PICCLINE WITH NS @75 ML/HR RUNNING. DRESSING ON LF C/D/I. SAFETY MEASURES IN PLACE: BED LOCKED AND IN LOWEST POSITION, CALL LIGHT WITHIN REACH, SIDE RAILS UP. WILL MONITOR PATIENT CLOSELY
[2021-12-02 20:00] VITALS: BP 149/85
[2021-12-02] MEDS: ENOXAPARIN SODIUM 40 MG/0.4 ML DISP.SYRIN SQ SCH (21:18)
[2021-12-02] MEDS: INSULIN GLARGINE, 100 UNIT/ML CARTRIDGE SQ SCH (21:19)
--- NOTE | 2021-12-02 22:00 | NUR ---
BS 201 MG/DL 4 UNITS GIVEN FOR COVERAGE, SNACKS PRVIDED. WILL MONITOR FOR HYPO/HYPERGLYCEMIA
--- NOTE | 2021-12-02 22:30 | NUR ---
MORPHINE GIVEN FOR PAIN ON L SHOULDER
[2021-12-03] MEDS: MORPHINE SULFATE INJ 2 MG/ML DISP.SYRIN IM PRN ×2 (05:57→21:34)
[2021-12-03 06:30] LABS: BASOPHILS # (AUTO) 0.1 K/uL (0.0-0.2); BASOPHILS % (AUTO) 0.9 % (0.0-2.0); EOSINOPHILS % (AUTO) 2.1 % (0.0-6.0); HEMATOCRIT 37 % (39-51); HEMOGLOBIN 12.2 g/dL (13.5-17.5); LYMPHOCYTES # (AUTO) 2.5 K/uL (0.8-4.8); LYMPHOCYTES % (AUTO) 24.8 % (20.0-44.0); MEAN CORPUSCULAR HGB CONC 33 g/dl (31.0-36.0); MEAN CORPUSCULAR VOLUME 79 fL (80-96); MONOCYTES # (AUTO) 0.7 K/uL (0.1-1.30); MONOCYTES % (AUTO) 7.1 % (2.0-12.0); NEUTROPHILS # (AUTO) 6.6 K/uL (1.8-8.9); NEUTROPHILS % (AUTO) 65.1 % (43.0-81.0); PLATELET COUNT (AUTO) 401 K/uL (150-450); RED BLOOD CELL COUNT(AUTO) 4.72 MIL/uL (4.5-6.0); WHITE BLOOD COUNT (AUTO) 10.1 K/uL (4.3-11.0)
--- NOTE | 2021-12-03 06:44 | NUR ---
RN CLOSING NOTE PATIENT IN BED, EYES CLOSED. PATIENT IS A/O X 4 ABLE TO MAKE NEEDS KNOWN. CURRENTLY ON RA, TOLERATES WELL. NO COMPLAINS OF PAIN AT THIS TIME. MORPHINE GIVEN AT 0557 FOR SHOULDER PAIN. PATIENT HAS A DELFINA PICCLINE WITH NS @75 ML/HR RUNNING. DRESSING ON LFOOT C/D/I. BS 117 MG/DL, NO COVERAGE GIVEN. SAFETY MEASURES IN PLACE: BED LOCKED AND IN LOWEST POSITION, CALL LIGHT WITHIN REACH, SIDE RAILS UP. ALL NEEDS MET AND ATTENDED. ALL ORDERS CARRIED OUT. WILL ENDORSE TO DAY SHIFT NURSE FOR BENJA.
--- NOTE | 2021-12-03 07:30 | NUR ---
MS RN OPENING NOTE SEEN PATIENT SITTING ON BEDSIDE, EYES CLOSED, EASILY AROUSABLE. A/O X4. INSTRUCTED TO LAY DOWN TO AVOID FALL. TOLERATING ROOM AIR WELL. C/O PAIN ON LEFT SHOULDER, WILL REASSESS IN 30 MINS. HAS DELFINA PICC LINE W/ NS @75 ML/HR INFUSING WELL. LEFT FOOT DRESSING INTACT. BED LOCKED AND IN LOW POSITION, SIDE RAILS UP X2, C/L WITHIN REACH. WILL CONTINUE TO MONITOR DURING SHIFT.
[2021-12-03 07:55] LABS: CALCIUM, SERUM 8.8 mg/dL (8.5-10.1); CREATININE 1.5 mg/dL (0.6-1.3); MAGNESIUM 1.8 mg/dL (1.8-2.4); PHOSPHORUS 4.2 mg/dL (2.5-4.9); POTASSIUM 4.1 mmol/L (3.5-5.1)
[2021-12-03 08:00] VITALS: BP 152/97
[2021-12-03] MEDS: BLOOD SUGAR DIAGNOSTIC 1 EACH STRIP IN SCH ×4 (08:50→21:49)
[2021-12-03] MEDS: PANTOPRAZOLE 40 MG TABLET.DR PO SCH (08:58)
[2021-12-03] MEDS: LISINOPRIL (10MG) 10 MG TABLET PO SCH (09:01)
[2021-12-03] MEDS: THERAHONEY GEL 1.5 OZ TUBE TP SCH (09:03)
[2021-12-03] MEDS: CADEXOMER IODINE 40 GM TUBE TP SCH (09:03)
[2021-12-03] MEDS: VANCOMYCIN 0.75 GM in IV D5W 250 ML IV SCH ×2 (09:13→21:21)
[2021-12-03] MEDS: INSULIN REGULAR, HUMAN 100 UNIT/ML 3 ML VIAL SQ PRN ×3 (11:54→21:59)
[2021-12-03] MEDS: HYDROCODONE/APAP 10/325MG TABLET PO PRN (12:46)
[2021-12-03] MEDS: IV NS 0.9% 1,000 ML IV PRN (16:52)
--- NOTE | 2021-12-03 19:25 | NUR ---
MS RN OPENING NOTE RECEIVED REPORT AT PATIENT'S BEDSIDE. PATIENT SITTING UP AT EDGE OF BED. A/O X4. NAD AND STABLE AT THIS TIME. DELFINA TRIPLE LUMEN PICC PATENT, NS @ 75 ML/HR; NO S/SX OF INFILTRATION/ERYTHEMA/SWELLING/PAIN TO OR SURROUNDING INSERTION SITE, DRESSING CDI. DRESSING TO L FOOT CDI. SAFETY MEASURES IN PLACE: BED LOW/LOCKED POSITION, SIDE RAILS UP X2, HOB ELEVATED TO SEMI-LEWIS'S POSITION. PATIENT DEMONSTRATES ABILITY TO USE CALL LIGHT AND VERBALIZE NEEDS EFFECTIVELY. CALL LIGHT AND FREQUENTLY USED ITEMS WITHIN REACH.
--- NOTE | 2021-12-03 19:26 | NUR ---
MS RN CLOSING NOTE PATIENT RESTING IN BED, RESPONSIVE TO VERBAL AND TACTILE STIMULI. A/O X4. TOLERATING ROOM AIR WELL @ 100% SPO2. C/O PAIN 5/10 ON LEFT SHOULDER, PRN PAIN MED ADMINISTERED, REASSESSED WITH MINIMAL IMPROVEMENT IN PAIN LEVEL. HAS DELFINA PICC LINE W/ NS @ 75 ML/HR. INTACT AND INFUSING WELL. ALL MEDS GIVEN AND NEEDS ATTENDED. WOUND CARE ON LEFT FOOT RENDERED AND PHOTO TAKEN. SAFETY MEASURES PLACED: BED LOCKED AND IN LOW POSITION, C/L WITHIN REACH, SIDE RAILS UP X2. WILL ENDORSE TO WATER RECLAMATION SYSTEMS OPERATOR NURSE FOR BENJA.
[2021-12-03 20:00] VITALS: BP 172/107
[2021-12-03] MEDS: ENOXAPARIN SODIUM 40 MG/0.4 ML DISP.SYRIN SQ SCH (21:49)
[2021-12-03] MEDS: INSULIN GLARGINE, 100 UNIT/ML CARTRIDGE SQ SCH (21:56)
[2021-12-04] MEDS ORDERED: hydrALAZINE HCL IV 20 MG VIAL IV PRN
--- NOTE | 2021-12-04 05:41 | NUR ---
MS RN CLOSING NOTE NO CHANGE FROM OPENING ASSESSMENT. PATIENT IN NAD AND STABLE AT THIS TIME. PATIENT IN BED, EYES CLOSED, RR EVEN AND UNLABORED. EASILY AROUSED TO VOICE. PATIENT A&OX4. DELFINA TRIPLE LUMEN PICC PATENT, NS @ 75 ML/HR; NO S/SX OF INFILTRATION/ERYTHEMA/SWELLING/PAIN TO OR SURROUNDING INSERTION SITE, DRESSING CDI. DRESSING TO L FOOT CDI. SAFETY MEASURES IN PLACE: BED LOW/LOCKED POSITION, SIDE RAILS UP X2, HOB ELEVATED TO SEMI-LEWIS'S POSITION. PATIENT DEMONSTRATES ABILITY TO USE CALL LIGHT AND VERBALIZE NEEDS EFFECTIVELY. CALL LIGHT AND FREQUENTLY USED ITEMS WITHIN REACH.
[2021-12-04] MEDS: BLOOD SUGAR DIAGNOSTIC 1 EACH STRIP IN SCH ×3 (06:31→17:41)
[2021-12-04] MEDS: INSULIN REGULAR, HUMAN 100 UNIT/ML 3 ML VIAL SQ PRN ×2 (06:32→17:28)
[2021-12-04] MEDS: PANTOPRAZOLE 40 MG TABLET.DR PO SCH (06:34)
[2021-12-04 06:40] LABS: CALCIUM, SERUM 8.6 mg/dL (8.5-10.1); CREATININE 1.6 mg/dL (0.6-1.3); POTASSIUM 4.2 mmol/L (3.5-5.1)
[2021-12-04] MEDS: IV NS 0.9% 1,000 ML IV PRN (07:25)
--- NOTE | 2021-12-04 07:38 | NUR ---
RN OPENING NOTES Patient seen comfortably lying in bed, no apparent distress noted, respirations even and unlabored, no SOB, denies any pain or discomfort at this time, no grimacing. Call light left within reach, safety precautions in place, brakes locked, side rails up X 2, will monitor closely for any changes.
[2021-12-04 08:00] VITALS: BP 118/94
[2021-12-04] MEDS: VANCOMYCIN 0.75 GM in IV D5W 250 ML IV SCH (10:06)
--- NOTE | 2021-12-04 10:30 | NUR ---
Patient left unit for procedure around 10:22am, stable condition, no apparent distress noted, remained NPO post midnight, no hypo/hyperglycemia noted, no change in level of consciousness, no tremors. Consents (signed by patient) and checklist filed in patient's chart. Patient not wearing any jewelry at this time.
[2021-12-04] MEDS ORDERED: IV NS 0.9% 1,000 ML ONE (10:48)
[2021-12-04] MEDS ORDERED: IV SET PRIMARY PUMP SET 1 EA INFUS.SET MC ONE (10:48)
[2021-12-04] MEDS ORDERED: IODIXANOL 150 ML IV ONE (10:48)
[2021-12-04] MEDS ORDERED: LIDOCAINE HCL/PF 1% 30 ML SDV ONE (10:49)
[2021-12-04] MEDS ORDERED: FENTANYL PF 100MCG/2ML AMPUL ONE (11:07)
[2021-12-04] MEDS ORDERED: MIDAZOLAM HCL 2 MG/2ML VIAL ONE (11:07)
[2021-12-04] MEDS ORDERED: METOPROLOL TARTRATE INJ 5 MG/5 ML AMPUL ONE (11:08)
[2021-12-04] MEDS: THERAHONEY GEL 1.5 OZ TUBE TP SCH (11:34)
--- NOTE | 2021-12-04 12:05 | NUR ---
Patient came back to unit, S/P left lower extremity angiogram, abdominal aortogram around 1202pm, stable condition, site covered with dry and intact dressing, no bleeding at this time, no unusual odor, no swelling, no redness. Patient with no apparent distress noted, hospitalist made aware of the situation with new orders to resume previous diet, bed rest X 2hours, may elevate HOB to 10 degrees, progress to 30 degrees after 1 hour, 0.9% Normal Saline at 100ml/hr X 6 hours, order read back and noted and carried out, will monitor closely for any changes.
[2021-12-04 12:22] VITALS: BP 150/108
[2021-12-04] MEDS: LISINOPRIL (10MG) 10 MG TABLET PO SCH (12:22)
[2021-12-04] MEDS: CADEXOMER IODINE 40 GM TUBE TP SCH (12:26)
[2021-12-04] MEDS ORDERED: NS 0.9% IV ONE (12:30)
[2021-12-04] MEDS: MORPHINE SULFATE INJ 2 MG/ML DISP.SYRIN IM PRN (15:03)
[2021-12-04] MEDS ORDERED: VANC750F2 IV (15:33)
--- NOTE | 2021-12-04 18:32 | NUR ---
RN CLOSING NOTES Patient lying in bed, no SOB, respirations even and unlabored, no apparent distress noted, denies any pain or discomfort. All due medications given per MD order, tolerating well. Patient S/P left lower extremity angio, abdominal aortagram, no bleeding noted at site, no swelling, no unusual odor noted, dressings dry and intact. No s/s of hypo or hyperglycemia, no tremors, no change in level of consciousness. All needs attended, kept clean and dry, call light left within reach, safety precautions in place, frequent visual check rendered, brakes locked, side rails up X 2, will endorse to next shift for continuity of care.
--- NOTE | 2021-12-04 19:15 | NUR ---
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 AT 2130.
--- NOTE | 2021-12-04 19:30 | NUR ---
MS RN NOTES RECEIVED PATIENT USING THE RESTROOM.
--- NOTE | 2021-12-04 19:33 | NUR ---
Patient to be discharged to [facility] (phone: [phone], spoke to Thao OLIVER), no apparent distress noted, no shortness of breath, respirations even and unlabored, pain medication given per MD order as needed when non pharmacological measures ineffective, remained afebrile. Patient made aware of the situation, he signed all discharge paper works, all belongings taken, inventory list signed by patient. Health teaching provided, verbalized understanding and gratitude. Skin assessment done prior to discharge, skin intact, warm to touch, no pallor or cyanosis noted. Patient has posterior scalp wound and left foot wound, preferred not to have pictures taken, explained risks and benefits and hospital protocol thrice, still refused, respected patients wishes. PICC line not removed prior to discharge, patient will be having Vancomycin IV at the SNF. Name wristband will be removed prior to discharge, surgical mask will be provided for patient to use, exit care documents handed to next shift for continuity of care.
--- NOTE | 2021-12-04 19:45 | NUR ---
MS RN NOTES PER NAVDEEP MOREL,PATIENT REFUSED TO HAVE VITAL SIGNS TO BE CHECK.
--- NOTE | 2021-12-04 20:00 | NUR ---
MS RN NOTES LAST SEEN BY NAVDEEP CAREY,PATIENT RIDING ON HIS WHEELCHAIR GOING AROUND AND ALSO TALK TO PATIENT IN ROOM 320 BY THE HALLWAYS,WEARING CIVILIAN CLOTHES.
--- NOTE | 2021-12-04 20:15 | NUR ---
MS RN NOTES WENT DOWN TO THE FIRST FLOOR AND ALERTED INSTRUCTOR APPAREL MANUFACTURE ANNABELLA AND HE SAID HE SAW PATIENT ON WHEELCHAIR GOING TOWARDS [place]BIN.NURSE ASSIGNED FANNIE RN AND THE INSTRUCTOR APPAREL MANUFACTURE WENT AND CHECKED PATIENT BY [facility],BUT HE'S NOT THERE. INCIDENT REPORTED TO NURSING PARTRIDGE FARMER AND ADVICE TO CALL [employer] TO REPORT THE INCIDENT,THAT PATIENT STILL WITH PICC LINE,NOT TO BE TAKEN OUT ORDERED.FOR ANTIBIOTICS IV TILL DECEMBER 16.
--- NOTE | 2021-12-04 21:55 | NUR ---
MS RN NOTES SPOKED TO RAYSHAWN Moeller,INCIDENT REPORTED ANG WILL NOTIFY DISPATCH AROUND THE AREA IN [facility].WILL FOLLOW UP.
== END 2021-12-04 20:00 | disposition left against medical advice (07) | DRG 349 ==
LOC: ER 18:19 → MED 11-27
PROVIDERS: ADMIT Nurse Practitioner Acute Care; ATTEND Internal Medicine
PROC: 0JBR0ZZ Excision of Left Foot Subcutaneous Tissue and Fascia, Open Approach (ICD-10-PCS; principal; 2021-11-28)
PROC: B41DYZZ Fluoroscopy of Aorta and Bilateral Lower Extremity Arteries using Other Contrast (ICD-10-PCS; 2021-12-04)
DX: T87.44 Infection of amputation stump, left lower extremity (principal); N17.0 Acute kidney failure with tubular necrosis; M86.172 Other acute osteomyelitis, left ankle and foot; E87.1 Hypo-osmolality and hyponatremia; L03.116 Cellulitis of left lower limb; E11.69 Type 2 diabetes mellitus with other specified complication; E11.51 Type 2 diabetes mellitus with diabetic peripheral angiopathy without gangrene; I70.92 Chronic total occlusion of artery of the extremities; L97.428 Non-pressure chronic ulcer of left heel and midfoot with other specified severity; E11.22 Type 2 diabetes mellitus with diabetic chronic kidney disease; E11.40 Type 2 diabetes mellitus with diabetic neuropathy, unspecified; I12.9 Hypertensive chronic kidney disease with stage 1 through stage 4 chronic kidney disease, or unspecified chronic kidney disease; Z59.01 Sheltered homelessness; N18.31 Chronic kidney disease, stage 3a; E11.65 Type 2 diabetes mellitus with hyperglycemia; E86.1 Hypovolemia; Z89.422 Acquired absence of other left toe(s); Z79.84 Long term (current) use of oral hypoglycemic drugs; Z79.4 Long term (current) use of insulin; Y83.8 Other surgical procedures as the cause of abnormal reaction of the patient, or of later complication, without mention of misadventure at the time of the procedure; Y92.89 Other specified places as the place of occurrence of the external cause; E11.621 Type 2 diabetes mellitus with foot ulcer; L02.811 Cutaneous abscess of head [any part, except face]; Z22.322 Carrier or suspected carrier of Methicillin resistant Staphylococcus aureus; Z79.899 Other long term (current) drug therapy; Z86.14 Personal history of Methicillin resistant Staphylococcus aureus infection; Z91.19 Patient's noncompliance with other medical treatment and regimen; Z20.822 Contact with and (suspected) exposure to COVID-19
CPT/HCPCS: 36246; 36415; 73030-TC; 75625; 75710-TC; 80048-TC; 80053-TC; 80202-TC; 82962-TC; 83735-TC; 84100-TC; 85025-TC; 85730-TC; 87081-TC; 93971-TC; A6403; C1887; C1894; C9803; G0378; G0500; J0696; J1644; J1650; J1815; J1885; J2250; J2270; J3010; J3370; J3490; J7030; J7060; Q9967

== ENCOUNTER 2022-10-30 20:50 | Inpatient (IN) | payer OTHER ==
[~2022-10-30] VITALS: Ht 175.3 cm; Wt 98.8 kg
[~2022-10-30 20:50] MED LIST changes: -CEFT2FRO2 IV; -VANC1PLA9 IV; +VANC750F2 IV
[2022-10-30 21:00] VITALS: BP 172/112
[2022-10-30] MEDS ORDERED: MAG HYDROX/AL HYDROX/SIMETH 30 ML UDC PO PRN (23:00)
[2022-10-30] MEDS ORDERED: Z GUARD REMEDY 4 OZ OINT TP PRN (23:00)
[2022-10-30] MEDS ORDERED: ZOLPIDEM TARTRATE 5 MG TABLET PO PRN (23:00)
[2022-10-30] MEDS ORDERED: DEXTROSE 50%-WATER 50 ML DISP.SYRIN IV PRN (23:00)
[2022-10-30] MEDS ORDERED: ONDANSETRON HCL/PF 4 MG/2 ML VIAL IVP PRN (23:00)
[2022-10-30] MEDS ORDERED: MAGNESIUM HYDROXIDE 30 ML UDC PO PRN (23:00)
[2022-10-30] MEDS: ACETAMINOPHEN 325 MG TABLET PO PRN (23:10)
[2022-10-30] MEDS: hydrALAZINE HCL IV 20 MG VIAL IV PRN (23:10)
[2022-10-30 23:28] LABS: BASOPHILS # (AUTO) 0.1 K/uL (0.0-0.2); BASOPHILS % (AUTO) 0.6 % (0.0-2.0); EOSINOPHILS % (AUTO) 1.1 % (0.0-6.0); HEMATOCRIT 38 % (39-51); HEMOGLOBIN 11.8 g/dL (13.5-17.5); LYMPHOCYTES # (AUTO) 1.3 K/uL (0.8-4.8); LYMPHOCYTES % (AUTO) 7.6 % (20.0-44.0); MEAN CORPUSCULAR HGB CONC 31 g/dl (31.0-36.0); MEAN CORPUSCULAR VOLUME 79 fL (80-96); MONOCYTES # (AUTO) 1.1 K/uL (0.1-1.30); MONOCYTES % (AUTO) 6.7 % (2.0-12.0); NEUTROPHILS # (AUTO) 14.1 K/uL (1.8-8.9); PLATELET COUNT (AUTO) 319 K/uL (150-450); RED BLOOD CELL COUNT(AUTO) 4.78 MIL/uL (4.5-6.0); WHITE BLOOD COUNT (AUTO) 16.8 K/uL (4.3-11.0)
[2022-10-30] MEDS: INSULIN REGULAR, HUMAN 100 UNIT/ML 3 ML VIAL SQ PRN (23:32)
[2022-10-30 23:50] LABS: CALCIUM, SERUM 8.1 mg/dL (8.5-10.1); CREATININE 2.9 mg/dL (0.6-1.3); POTASSIUM 4.4 mmol/L (3.5-5.1)
[2022-10-30 23:53] LABS: MAGNESIUM 1.7 mg/dL (1.8-2.4); PHOSPHORUS 3.8 mg/dL (2.5-4.9)
[2022-10-31] MEDS ORDERED: VANCOMYCIN 1 GM VIAL ONE ×2 (00:32→00:35)
[2022-10-31] MEDS ORDERED: CEFTRIAXONE 1 G VIAL ONE ×2 (00:33→00:35)
[2022-10-31] MEDS: IV NS 0.9% 1,000 ML IV PRN ×2 (00:38→18:41)
[2022-10-31] MEDS: CEFTRIAXONE 2 G in IV D5W 100 ML IV SCH ×2 (00:41→23:33)
[2022-10-31] MEDS: MORPHINE SULFATE INJ 4 MG/ML DISP.SYRIN IV PRN ×5 (00:54→23:32)
[2022-10-31] MEDS ORDERED: VANCOMYCIN 2 GM in IV D5W 500 ML IV ONE (01:00)
[2022-10-31 02:15] LABS: BILIRUBIN,URINE NEGATIVE (NEGATIVE); COLOR,URINE YELLOW (YELLOW); LEUKOCYTE ESTERASE ,URINE NEGATIVE (NEGATIVE); NITRITE, URINE NEGATIVE (NEGATIVE); PH,URINE 7.5 (5.0-8.0); PROTEIN,URINE 3+ mg/dl (NEGATIVE); UGLUCOSE 1+ mg/dL (NEGATIVE); UROBILINOGEN,URINE 0.2 EU/dL (0.2)
[2022-10-31 02:22] LABS: BACTERIA,URINE Rare /HPF (None Seen); SQUAMOUS EPITHELIAL CELL,UR Few /HPF (None Seen)
[2022-10-31 05:13] VITALS: BP 146/97
[2022-10-31 05:48] LABS: BASOPHILS # (AUTO) 0.1 K/uL (0.0-0.2); BASOPHILS % (AUTO) 0.5 % (0.0-2.0); EOSINOPHILS % (AUTO) 2.3 % (0.0-6.0); HEMATOCRIT 37 % (39-51); HEMOGLOBIN 11.4 g/dL (13.5-17.5); LYMPHOCYTES # (AUTO) 1.3 K/uL (0.8-4.8); LYMPHOCYTES % (AUTO) 9.8 % (20.0-44.0); MEAN CORPUSCULAR HGB CONC 31 g/dl (31.0-36.0); MEAN CORPUSCULAR VOLUME 79 fL (80-96); MONOCYTES % (AUTO) 7.4 % (2.0-12.0); PLATELET COUNT (AUTO) 306 K/uL (150-450); RED BLOOD CELL COUNT(AUTO) 4.62 MIL/uL (4.5-6.0); WHITE BLOOD COUNT (AUTO) 13.7 K/uL (4.3-11.0)
[2022-10-31 06:05] LABS: CALCIUM, SERUM 8.1 mg/dL (8.5-10.1); CREATININE 2.9 mg/dL (0.6-1.3); MAGNESIUM 1.7 mg/dL (1.8-2.4); PHOSPHORUS 3.8 mg/dL (2.5-4.9); POTASSIUM 3.7 mmol/L (3.5-5.1)
[2022-10-31] MEDS: INSULIN REGULAR, HUMAN 100 UNIT/ML 3 ML VIAL SQ PRN ×4 (06:56→22:19)
[2022-10-31] MEDS: BLOOD SUGAR DIAGNOSTIC 1 EACH STRIP IN SCH ×4 (07:01→22:13)
[2022-10-31 08:00] VITALS: BP 169/99
[2022-10-31] MEDS: LISINOPRIL (10MG) 10 MG TABLET PO SCH (08:34)
[2022-10-31] MEDS: GABAPENTIN 300 MG CAPSULE PO SCH (08:34)
[2022-10-31] MEDS: HYDROCODONE/APAP 5/325MG TABLET PO PRN (08:34)
[2022-10-31] MEDS ORDERED: NEOM/POLY B SULF/HC OTIC SUSP 10 ML BOTTLE RIGHT EAR SCH (13:00)
[2022-10-31 16:00] VITALS: BP 125/84
[2022-10-31 20:00] VITALS: BP 108/62
[2022-10-31] MEDS: CIPROFLOXACIN HCL 0.3% 5 ML BOTTLE OT SCH (20:18)
[2022-10-31] MEDS: INSULIN GLARGINE, 100 UNIT/ML CARTRIDGE SQ SCH (22:18)
[2022-11-01] MEDS: VANCOMYCIN 1 GM in IV D5W 250ml IV SCH (00:17)
[2022-11-01 00:25] VITALS: BP 150/92
[2022-11-01 05:54] LABS: BASOPHILS # (AUTO) 0.1 K/uL (0.0-0.2); BASOPHILS % (AUTO) 0.7 % (0.0-2.0); EOSINOPHILS % (AUTO) 1.8 % (0.0-6.0); HEMATOCRIT 37 % (39-51); HEMOGLOBIN 11.2 g/dL (13.5-17.5); LYMPHOCYTES # (AUTO) 1.4 K/uL (0.8-4.8); LYMPHOCYTES % (AUTO) 10.7 % (20.0-44.0); MEAN CORPUSCULAR HGB CONC 31 g/dl (31.0-36.0); MEAN CORPUSCULAR VOLUME 80 fL (80-96); MONOCYTES % (AUTO) 7.7 % (2.0-12.0); NEUTROPHILS # (AUTO) 10.7 K/uL (1.8-8.9); NEUTROPHILS % (AUTO) 79.1 % (43.0-81.0); PLATELET COUNT (AUTO) 306 K/uL (150-450); RED BLOOD CELL COUNT(AUTO) 4.59 MIL/uL (4.5-6.0); WHITE BLOOD COUNT (AUTO) 13.5 K/uL (4.3-11.0)
[2022-11-01 06:00] LABS: CALCIUM, SERUM 8.4 mg/dL (8.5-10.1); MAGNESIUM 1.8 mg/dL (1.8-2.4); PHOSPHORUS 3.8 mg/dL (2.5-4.9); POTASSIUM 3.9 mmol/L (3.5-5.1)
[2022-11-01] MEDS: MORPHINE SULFATE INJ 4 MG/ML DISP.SYRIN IV PRN (06:41)
[2022-11-01] MEDS: BLOOD SUGAR DIAGNOSTIC 1 EACH STRIP IN SCH ×4 (06:53→21:44)
[2022-11-01] MEDS: INSULIN REGULAR, HUMAN 100 UNIT/ML 3 ML VIAL SQ PRN ×4 (06:54→21:44)
[2022-11-01 08:00] VITALS: BP 141/86
[2022-11-01] MEDS: CIPROFLOXACIN HCL 0.3% 5 ML BOTTLE OT SCH ×2 (08:38→20:16)
[2022-11-01] MEDS: GABAPENTIN 300 MG CAPSULE PO SCH (08:38)
[2022-11-01] MEDS: LISINOPRIL (10MG) 10 MG TABLET PO SCH (08:39)
[2022-11-01] MEDS: IV NS 0.9% 1,000 ML IV PRN (09:44)
[2022-11-01] MEDS: HYDROMORPHONE 1 MG/1 ML DISP.SYRIN IV PRN ×3 (11:27→20:16)
[2022-11-01 16:00] VITALS: BP 153/87
[2022-11-01 20:00] VITALS: BP 142/77
[2022-11-01] MEDS: INSULIN GLARGINE, 100 UNIT/ML CARTRIDGE SQ SCH (21:55)
[2022-11-02] MEDS: VANCOMYCIN 1 GM in IV D5W 250ml IV SCH ×2 (00:34→01:10)
[2022-11-02] MEDS: HYDROMORPHONE 1 MG/1 ML DISP.SYRIN IV PRN ×5 (00:38→20:01)
[2022-11-02] MEDS: IV NS 0.9% 1,000 ML IV PRN ×2 (01:14→14:04)
[2022-11-02 07:14] LABS: CALCIUM, SERUM 8.5 mg/dL (8.5-10.1); CREATININE 2.9 mg/dL (0.6-1.3); MAGNESIUM 1.9 mg/dL (1.8-2.4); PHOSPHORUS 4.1 mg/dL (2.5-4.9); POTASSIUM 4.2 mmol/L (3.5-5.1)
[2022-11-02 07:18] LABS: BASOPHILS # (AUTO) 0.1 K/uL (0.0-0.2); BASOPHILS % (AUTO) 0.7 % (0.0-2.0); EOSINOPHILS % (AUTO) 2.2 % (0.0-6.0); HEMATOCRIT 36 % (39-51); HEMOGLOBIN 10.9 g/dL (13.5-17.5); LYMPHOCYTES # (AUTO) 1.7 K/uL (0.8-4.8); LYMPHOCYTES % (AUTO) 14.3 % (20.0-44.0); MEAN CORPUSCULAR HGB CONC 31 g/dl (31.0-36.0); MEAN CORPUSCULAR VOLUME 79 fL (80-96); MONOCYTES # (AUTO) 0.9 K/uL (0.1-1.30); MONOCYTES % (AUTO) 7.4 % (2.0-12.0); NEUTROPHILS # (AUTO) 9.1 K/uL (1.8-8.9); NEUTROPHILS % (AUTO) 75.4 % (43.0-81.0); PLATELET COUNT (AUTO) 367 K/uL (150-450); WHITE BLOOD COUNT (AUTO) 12.1 K/uL (4.3-11.0)
[2022-11-02] MEDS: INSULIN REGULAR, HUMAN 100 UNIT/ML 3 ML VIAL SQ PRN ×2 (07:55→21:39)
[2022-11-02] MEDS: BLOOD SUGAR DIAGNOSTIC 1 EACH STRIP IN SCH ×4 (07:55→21:36)
[2022-11-02 08:09] VITALS: BP 164/98
[2022-11-02] MEDS: CIPROFLOXACIN HCL 0.3% 5 ML BOTTLE OT SCH ×2 (08:34→21:37)
[2022-11-02] MEDS: LISINOPRIL (10MG) 10 MG TABLET PO SCH (08:34)
[2022-11-02] MEDS: GABAPENTIN 300 MG CAPSULE PO SCH (08:34)
[2022-11-02 16:07] VITALS: BP 130/70
[2022-11-02] MEDS: HYDROCODONE/APAP 5/325MG TABLET PO PRN (16:19)
[2022-11-02 20:00] VITALS: BP 166/93
[2022-11-02] MEDS: MUPIROCIN OINT 2% 22 GM TUBE NS SCH (21:37)
[2022-11-02] MEDS: INSULIN GLARGINE, 100 UNIT/ML CARTRIDGE SQ SCH (21:38)
[2022-11-03] MEDS: VANCOMYCIN 1 GM in IV D5W 250ml IV SCH ×2 (00:16→12:43)
[2022-11-03] MEDS: HYDROMORPHONE 1 MG/1 ML DISP.SYRIN IV PRN ×5 (00:24→21:43)
[2022-11-03] MEDS: HYDROCODONE/APAP 5/325MG TABLET PO PRN ×2 (03:07→20:31)
[2022-11-03] MEDS: IV NS 0.9% 1,000 ML IV PRN ×2 (05:25→21:48)
[2022-11-03 05:58] LABS: BASOPHILS # (AUTO) 0.1 K/uL (0.0-0.2); BASOPHILS % (AUTO) 0.9 % (0.0-2.0); EOSINOPHILS % (AUTO) 3.8 % (0.0-6.0); HEMATOCRIT 36 % (39-51); HEMOGLOBIN 11.2 g/dL (13.5-17.5); LYMPHOCYTES # (AUTO) 1.5 K/uL (0.8-4.8); LYMPHOCYTES % (AUTO) 15.9 % (20.0-44.0); MEAN CORPUSCULAR HGB CONC 31 g/dl (31.0-36.0); MEAN CORPUSCULAR VOLUME 80 fL (80-96); MONOCYTES # (AUTO) 0.7 K/uL (0.1-1.30); MONOCYTES % (AUTO) 7.8 % (2.0-12.0); NEUTROPHILS # (AUTO) 6.7 K/uL (1.8-8.9); NEUTROPHILS % (AUTO) 71.6 % (43.0-81.0); PLATELET COUNT (AUTO) 353 K/uL (150-450); RED BLOOD CELL COUNT(AUTO) 4.49 MIL/uL (4.5-6.0); WHITE BLOOD COUNT (AUTO) 9.4 K/uL (4.3-11.0)
[2022-11-03 06:18] LABS: CALCIUM, SERUM 8.5 mg/dL (8.5-10.1); CREATININE 2.7 mg/dL (0.6-1.3); PHOSPHORUS 4.2 mg/dL (2.5-4.9)
[2022-11-03] MEDS: BLOOD SUGAR DIAGNOSTIC 1 EACH STRIP IN SCH ×4 (06:32→21:22)
[2022-11-03] MEDS: INSULIN REGULAR, HUMAN 100 UNIT/ML 3 ML VIAL SQ PRN ×4 (06:33→21:35)
[2022-11-03 08:00] VITALS: BP 157/80
[2022-11-03] MEDS: LISINOPRIL (10MG) 10 MG TABLET PO SCH (08:18)
[2022-11-03] MEDS: GABAPENTIN 300 MG CAPSULE PO SCH (08:18)
[2022-11-03] MEDS: CIPROFLOXACIN HCL 0.3% 5 ML BOTTLE OT SCH ×3 (09:00→21:00)
[2022-11-03] MEDS: MUPIROCIN OINT 2% 22 GM TUBE NS SCH ×2 (09:32→21:21)
[2022-11-03] MEDS: THERAHONEY GEL 1.5 OZ TUBE TP SCH (10:09)
[2022-11-03 16:00] VITALS: BP 145/79
[2022-11-03] MEDS: CEFTRIAXONE 2 G in IV D5W 100 ML IV SCH (16:46)
[2022-11-03] MEDS: GLUCERNA SHAKE 237 ML CAN PO SCH (17:14)
[2022-11-03 20:00] VITALS: BP 164/106
[2022-11-03] MEDS: INSULIN GLARGINE, 100 UNIT/ML CARTRIDGE SQ SCH (21:33)
[2022-11-04] MEDS: HYDROCODONE/APAP 5/325MG TABLET PO PRN ×3 (00:44→23:53)
[2022-11-04] MEDS: HYDROMORPHONE 1 MG/1 ML DISP.SYRIN IV PRN ×3 (05:57→19:20)
[2022-11-04] MEDS: INSULIN REGULAR, HUMAN 100 UNIT/ML 3 ML VIAL SQ PRN ×3 (06:29→21:52)
[2022-11-04] MEDS: BLOOD SUGAR DIAGNOSTIC 1 EACH STRIP IN SCH ×4 (06:30→21:14)
[2022-11-04 06:52] LABS: CALCIUM, SERUM 8.4 mg/dL (8.5-10.1); CREATININE 2.5 mg/dL (0.6-1.3); POTASSIUM 4.3 mmol/L (3.5-5.1)
[2022-11-04 07:00] VITALS: BP_SYST 158; BP_SYST 163; BP_DIAS 100; BP_DIAS 108
[2022-11-04] MEDS: LISINOPRIL (10MG) 10 MG TABLET PO SCH ×3 (08:21→16:08)
[2022-11-04] MEDS: GABAPENTIN 300 MG CAPSULE PO SCH (08:21)
[2022-11-04] MEDS: GLUCERNA SHAKE 237 ML CAN PO SCH ×2 (08:22→16:08)
[2022-11-04] MEDS: IV NS 0.9% 1,000 ML IV PRN (08:27)
[2022-11-04] MEDS: MUPIROCIN OINT 2% 22 GM TUBE NS SCH ×2 (08:29→20:23)
[2022-11-04] MEDS: THERAHONEY GEL 1.5 OZ TUBE TP SCH (08:29)
[2022-11-04] MEDS: CIPROFLOXACIN HCL 0.3% 5 ML BOTTLE OT SCH ×2 (09:27→20:24)
[2022-11-04 13:08] VITALS: BP 158/100
[2022-11-04] MEDS: CEFTRIAXONE 2 G in IV D5W 100 ML IV SCH (14:09)
[2022-11-04 16:00] VITALS: BP 159/109
[2022-11-04 20:00] VITALS: BP 183/106
[2022-11-04] MEDS: hydrALAZINE HCL IV 20 MG VIAL IV PRN (20:22)
[2022-11-04 21:22] VITALS: BP 160/100
[2022-11-04] MEDS: INSULIN GLARGINE, 100 UNIT/ML CARTRIDGE SQ SCH (21:51)
[2022-11-05] MEDS: VANCOMYCIN 1 GM in IV D5W 250ml IV SCH (01:16)
[2022-11-05] MEDS: IV NS 0.9% 1,000 ML IV PRN ×2 (01:45→15:26)
[2022-11-05 06:29] LABS: CALCIUM, SERUM 8.4 mg/dL (8.5-10.1); CREATININE 2.5 mg/dL (0.6-1.3); POTASSIUM 4.3 mmol/L (3.5-5.1)
[2022-11-05] MEDS: BLOOD SUGAR DIAGNOSTIC 1 EACH STRIP IN SCH ×4 (06:32→22:49)
[2022-11-05 07:00] VITALS: BP 158/93
[2022-11-05] MEDS: ACETAMINOPHEN 325 MG TABLET PO PRN (08:00)
[2022-11-05] MEDS: LISINOPRIL (10MG) 10 MG TABLET PO SCH ×2 (08:43→17:25)
[2022-11-05] MEDS: GABAPENTIN 300 MG CAPSULE PO SCH (08:43)
[2022-11-05] MEDS: GLUCERNA SHAKE 237 ML CAN PO SCH ×2 (08:54→17:30)
[2022-11-05] MEDS: HYDROMORPHONE 1 MG/1 ML DISP.SYRIN IV PRN ×3 (09:24→21:50)
[2022-11-05] MEDS: CIPROFLOXACIN HCL 0.3% 5 ML BOTTLE OT SCH ×2 (09:46→21:34)
[2022-11-05] MEDS: MUPIROCIN OINT 2% 22 GM TUBE NS SCH ×2 (09:47→21:34)
[2022-11-05] MEDS: THERAHONEY GEL 1.5 OZ TUBE TP SCH (09:47)
[2022-11-05] MEDS: CEFTRIAXONE 2 G in IV D5W 100 ML IV SCH (15:15)
[2022-11-05 16:00] VITALS: BP 163/108
[2022-11-05] MEDS: HYDROCODONE/APAP 5/325MG TABLET PO PRN (17:49)
[2022-11-05 20:00] VITALS: BP_SYST 129; BP_SYST 156; BP_DIAS 105; BP_DIAS 83
[2022-11-05] MEDS: INSULIN GLARGINE, 100 UNIT/ML CARTRIDGE SQ SCH (22:47)
[2022-11-05] MEDS: INSULIN REGULAR, HUMAN 100 UNIT/ML 3 ML VIAL SQ PRN (22:48)
[2022-11-06] MEDS: VANCOMYCIN 0.75 GM in IV D5W 250 ML IV SCH (01:12)
[2022-11-06] MEDS: HYDROMORPHONE 1 MG/1 ML DISP.SYRIN IV PRN ×5 (02:25→21:59)
[2022-11-06] MEDS: IV NS 0.9% 1,000 ML IV PRN ×2 (05:44→15:30)
[2022-11-06] MEDS: INSULIN REGULAR, HUMAN 100 UNIT/ML 3 ML VIAL SQ PRN (06:34)
[2022-11-06 07:00] VITALS: BP 149/98
[2022-11-06 07:10] LABS: CALCIUM, SERUM 8.5 mg/dL (8.5-10.1); CREATININE 2.5 mg/dL (0.6-1.3); POTASSIUM 4.7 mmol/L (3.5-5.1)
[2022-11-06] MEDS: BLOOD SUGAR DIAGNOSTIC 1 EACH STRIP IN SCH ×4 (07:57→22:00)
[2022-11-06] MEDS: GLUCERNA SHAKE 237 ML CAN PO SCH ×2 (08:00→17:00)
[2022-11-06] MEDS: GABAPENTIN 300 MG CAPSULE PO SCH ×2 (08:28→08:44)
[2022-11-06] MEDS: LISINOPRIL (10MG) 10 MG TABLET PO SCH ×2 (08:28→17:13)
[2022-11-06] MEDS: MUPIROCIN OINT 2% 22 GM TUBE NS SCH ×2 (09:49→21:40)
[2022-11-06] MEDS: THERAHONEY GEL 1.5 OZ TUBE TP SCH (09:49)
[2022-11-06] MEDS: CIPROFLOXACIN HCL 0.3% 5 ML BOTTLE OT SCH ×2 (09:50→21:40)
[2022-11-06] MEDS: CEFTRIAXONE 2 G in IV D5W 100 ML IV SCH (15:02)
[2022-11-06 16:00] VITALS: BP 131/100
[2022-11-06 20:00] VITALS: BP 162/99
[2022-11-06] MEDS: INSULIN GLARGINE, 100 UNIT/ML CARTRIDGE SQ SCH (22:00)
[2022-11-07] MEDS: VANCOMYCIN 0.75 GM in IV D5W 250 ML IV SCH (01:22)
[2022-11-07] MEDS: HYDROMORPHONE 1 MG/1 ML DISP.SYRIN IV PRN ×2 (04:09→08:57)
[2022-11-07] MEDS: hydrALAZINE HCL IV 20 MG VIAL IV PRN (04:27)
[2022-11-07 06:09] LABS: CALCIUM, SERUM 8.4 mg/dL (8.5-10.1); CREATININE 2.4 mg/dL (0.6-1.3); POTASSIUM 4.7 mmol/L (3.5-5.1)
[2022-11-07] MEDS: IV NS 0.9% 1,000 ML IV PRN ×2 (07:01→18:08)
[2022-11-07] MEDS: BLOOD SUGAR DIAGNOSTIC 1 EACH STRIP IN SCH ×4 (07:02→21:55)
[2022-11-07 08:00] VITALS: BP 164/111
[2022-11-07] MEDS: GABAPENTIN 300 MG CAPSULE PO SCH (08:57)
[2022-11-07] MEDS: LISINOPRIL (10MG) 10 MG TABLET PO SCH ×2 (08:57→17:18)
[2022-11-07] MEDS: MUPIROCIN OINT 2% 22 GM TUBE NS SCH ×2 (08:58→21:33)
[2022-11-07] MEDS: GLUCERNA SHAKE 237 ML CAN PO SCH ×2 (08:58→17:18)
[2022-11-07] MEDS: THERAHONEY GEL 1.5 OZ TUBE TP SCH (08:59)
[2022-11-07] MEDS: CIPROFLOXACIN HCL 0.3% 5 ML BOTTLE OT SCH (08:59)
[2022-11-07] MEDS: HYDROCODONE/APAP 5/325MG TABLET PO PRN ×3 (11:19→23:53)
[2022-11-07] MEDS: INSULIN REGULAR, HUMAN 100 UNIT/ML 3 ML VIAL SQ PRN ×2 (12:42→22:00)
[2022-11-07] MEDS: CEFTRIAXONE 2 G in IV D5W 100 ML IV SCH (14:56)
[2022-11-07 16:00] VITALS: BP 151/87
[2022-11-07 20:00] VITALS: BP_SYST 143; BP_SYST 94; BP_DIAS 51; BP_DIAS 73
[2022-11-07] MEDS: INSULIN GLARGINE, 100 UNIT/ML CARTRIDGE SQ SCH (21:59)
[2022-11-08] MEDS: VANCOMYCIN 0.75 GM in IV D5W 250 ML IV SCH (01:08)
[2022-11-08] MEDS: HYDROMORPHONE 1 MG/1 ML DISP.SYRIN IV PRN ×2 (02:49→23:41)
[2022-11-08] MEDS: IV NS 0.9% 1,000 ML IV PRN (04:58)
[2022-11-08 07:00] VITALS: BP 177/117
[2022-11-08] MEDS: BLOOD SUGAR DIAGNOSTIC 1 EACH STRIP IN SCH ×4 (07:05→22:22)
[2022-11-08] MEDS: INSULIN REGULAR, HUMAN 100 UNIT/ML 3 ML VIAL SQ PRN ×2 (07:06→16:58)
[2022-11-08 07:11] LABS: CALCIUM, SERUM 8.2 mg/dL (8.5-10.1); CREATININE 2.4 mg/dL (0.6-1.3); POTASSIUM 5.4 mmol/L (3.5-5.1)
[2022-11-08] MEDS: HYDROCODONE/APAP 5/325MG TABLET PO PRN ×3 (07:53→21:33)
[2022-11-08] MEDS: LISINOPRIL (10MG) 10 MG TABLET PO SCH ×2 (08:13→16:05)
[2022-11-08] MEDS: GLUCERNA SHAKE 237 ML CAN PO SCH ×2 (08:13→16:05)
[2022-11-08] MEDS: GABAPENTIN 300 MG CAPSULE PO SCH (08:13)
[2022-11-08] MEDS: THERAHONEY GEL 1.5 OZ TUBE TP SCH (08:14)
[2022-11-08] MEDS: MUPIROCIN OINT 2% 22 GM TUBE NS SCH ×2 (08:14→21:00)
[2022-11-08] MEDS: SODIUM POLYSTYRENE SULF. PWD 15 GM UDC PO ONE ×2 (08:30→17:26)
[2022-11-08] MEDS: CEFTRIAXONE 2 G in IV D5W 100 ML IV SCH (14:43)
[2022-11-08 16:00] VITALS: BP_SYST 110; BP_SYST 152; BP_DIAS 108; BP_DIAS 58
[2022-11-08] MEDS ORDERED: SODIUM POLYSTYRENE SULF. PWD 15 GM UDC PO ONE (19:00)
[2022-11-08 20:00] VITALS: BP 135/71
[2022-11-08] MEDS: INSULIN GLARGINE, 100 UNIT/ML CARTRIDGE SQ SCH (22:00)
[2022-11-08] MEDS: ACETAMINOPHEN 325 MG TABLET PO PRN (23:29)
[2022-11-09] MEDS: VANCOMYCIN 0.75 GM in IV D5W 250 ML IV SCH (00:52)
[2022-11-09] MEDS: IV NS 0.9% 1,000 ML IV PRN (03:12)
[2022-11-09 06:10] LABS: CALCIUM, SERUM 8.2 mg/dL (8.5-10.1); CREATININE 2.4 mg/dL (0.6-1.3); POTASSIUM 4.6 mmol/L (3.5-5.1)
[2022-11-09] MEDS: BLOOD SUGAR DIAGNOSTIC 1 EACH STRIP IN SCH ×3 (06:52→17:24)
[2022-11-09] MEDS: INSULIN REGULAR, HUMAN 100 UNIT/ML 3 ML VIAL SQ PRN ×3 (06:53→17:28)
[2022-11-09] MEDS: HYDROCODONE/APAP 5/325MG TABLET PO PRN ×2 (07:07→14:42)
[2022-11-09] MEDS: THERAHONEY GEL 1.5 OZ TUBE TP SCH (08:16)
[2022-11-09] MEDS: LISINOPRIL (10MG) 10 MG TABLET PO SCH ×2 (08:16→17:23)
[2022-11-09] MEDS: GABAPENTIN 300 MG CAPSULE PO SCH (08:16)
[2022-11-09] MEDS: MUPIROCIN OINT 2% 22 GM TUBE NS SCH (08:16)
[2022-11-09] MEDS: GLUCERNA SHAKE 237 ML CAN PO SCH ×2 (08:19→17:24)
[2022-11-09 09:21] VITALS: BP 160/99
[2022-11-09] MEDS: HYDROMORPHONE 1 MG/1 ML DISP.SYRIN IV PRN ×2 (10:09→17:24)
[2022-11-09] MEDS: CEFTRIAXONE 2 G in IV D5W 100 ML IV SCH (14:40)
[2022-11-09 16:02] VITALS: BP_SYST 131; BP_SYST 166; BP_DIAS 115; BP_DIAS 68
[2022-11-09 17:23] VITALS: BP 166/115
[2022-11-09] MEDS: hydrALAZINE HCL IV 20 MG VIAL IV PRN (17:23)
== END 2022-11-09 18:23 | DRG 720 ==
LOC: MED 20:50
PROVIDERS: ADMIT Nurse Practitioner Acute Care; ATTEND Internal Medicine
PROC: 0JBR0ZZ Excision of Left Foot Subcutaneous Tissue and Fascia, Open Approach (ICD-10-PCS; principal; 2022-11-02)
PROC: 02HV33Z Insertion of Infusion Device into Superior Vena Cava, Percutaneous Approach (ICD-10-PCS; 2022-11-08)
PROC: B548ZZA Ultrasonography of Superior Vena Cava, Guidance (ICD-10-PCS; 2022-11-08)
DX: A41.02 Sepsis due to Methicillin resistant Staphylococcus aureus (principal); N17.0 Acute kidney failure with tubular necrosis; L97.529 Non-pressure chronic ulcer of other part of left foot with unspecified severity; M86.672 Other chronic osteomyelitis, left ankle and foot; H60.91 Unspecified otitis externa, right ear; E11.22 Type 2 diabetes mellitus with diabetic chronic kidney disease; E86.1 Hypovolemia; E11.42 Type 2 diabetes mellitus with diabetic polyneuropathy; J32.9 Chronic sinusitis, unspecified; L03.211 Cellulitis of face; E11.621 Type 2 diabetes mellitus with foot ulcer; N18.9 Chronic kidney disease, unspecified; Z20.822 Contact with and (suspected) exposure to COVID-19; I12.9 Hypertensive chronic kidney disease with stage 1 through stage 4 chronic kidney disease, or unspecified chronic kidney disease; E78.5 Hyperlipidemia, unspecified; Z79.84 Long term (current) use of oral hypoglycemic drugs; Z79.4 Long term (current) use of insulin; Z79.899 Other long term (current) drug therapy; E66.9 Obesity, unspecified; F15.90 Other stimulant use, unspecified, uncomplicated; Z86.73 Personal history of transient ischemic attack (TIA), and cerebral infarction without residual deficits; Z89.432 Acquired absence of left foot; Z68.32 Body mass index [BMI] 32.0-32.9, adult; E87.5 Hyperkalemia; L03.213 Periorbital cellulitis; E11.69 Type 2 diabetes mellitus with other specified complication
CPT/HCPCS: 36415; 36569; 70486-TC; 71045-TC; 73630-TC; 76770-TC; 80048-TC; 80061-TC; 80202-TC; 81001; 82962-TC; 83605-TC; 83735-TC; 84100-TC; 85025-TC; 86803; 87040-TC; 87081-TC; 87340; 87806; 93307-TC; 97112-TC; 97530-TC; A6403; G0378; J0360; J0696; J1170; J1815; J2270; J3370; J3490; J7030; J7060

== ENCOUNTER 2022-12-20 16:43 | Emergency (ER) | payer OTHER ==
[~2022-12-20] VITALS: Ht 172.7 cm; Wt 90.7 kg
--- NOTE | 2022-12-20 18:10 | NUR ---
PT WALKED INTO ER C/O EPIGASTRIC PAIN, CHEST AND BACK PAIN SINCE YESTERDAY. PT DENIES ANY TRAUMA. DENIES NAUSEA/ VOMTING/ DIARRHEA. PT IS BREATHING EVEN AND UNLABORED. AMBULATED TO BED WITH STEADY GAIT. AAOX4. CONNECTED TO MONITOR. VITAL SIGNS STABLE. SAFETY PRECAUTIONS IN PLACE. AWAITING MD ORDERS.
--- NOTE | 2022-12-20 18:39 | NUR ---
ESTABLISHED IV ACCESS LEFT AC 18G. BLOOD DRAWN AND SENT TO LAB.
--- NOTE | 2022-12-20 18:45 | NUR ---
MOVE SHEET SUBMITTED.
--- NOTE | 2022-12-20 18:46 | NUR ---
AT BEDSIDE FOR EVAL
[2022-12-20 19:00] LABS: CALCIUM, SERUM 8.9 mg/dL (8.5-10.1); POTASSIUM 5.1 mmol/L (3.5-5.1)
[2022-12-20] MEDS ORDERED: ASPIRIN 81 MG TAB.CHEW PO ONE (19:00)
--- NOTE | 2022-12-20 19:03 | NUR ---
XRAY AT BEDSIDE
[2022-12-20 19:06] LABS: ALBUMIN 2.4 g/dL (3.4-5.0); BILIRUBIN,DIRECT 0.1 mg/dL (0.0-0.2); BILIRUBIN,TOTAL 0.3 mg/dL (0.2-1.0)
[2022-12-20] MEDS ORDERED: ASPIRIN 81 MG TAB.CHEW ONE (19:08)
--- NOTE | 2022-12-20 19:16 | NUR ---
COVID SWAB COLLECTED AND SENT TO LAB
[2022-12-20 19:49] LABS: BASOPHILS # (AUTO) 0.1 K/uL (0.0-0.2); BASOPHILS % (AUTO) 1.1 % (0.0-2.0); HEMATOCRIT 44 % (39-51); HEMOGLOBIN 14.1 g/dL (13.5-17.5); LYMPHOCYTES % (AUTO) 22.4 % (20.0-44.0); MEAN CORPUSCULAR HGB CONC 32 g/dl (31.0-36.0); MEAN CORPUSCULAR VOLUME 81 fL (80-96); MONOCYTES # (AUTO) 0.5 K/uL (0.1-1.30); MONOCYTES % (AUTO) 5.8 % (2.0-12.0); NEUTROPHILS # (AUTO) 6.1 K/uL (1.8-8.9); NEUTROPHILS % (AUTO) 67.7 % (43.0-81.0); PLATELET COUNT (AUTO) 309 K/uL (150-450); RED BLOOD CELL COUNT(AUTO) 5.45 MIL/uL (4.5-6.0)
[2022-12-20 20:04] VITALS: BP 169/101
--- NOTE | 2022-12-20 21:30 | NUR ---
PT BECAME AGITATED WITH ED STAFF, STATING "YOU GUYS AREN'T DOING ANYTHING FOR ME HERE" REQUESTING TO LEAVE. IV REMOVED. REFUSED TO SIGN AMA FORM. ADMISTING HOSPITALIST PEÑA MADE AWARE.
== END 2022-12-20 21:48 | disposition left against medical advice (07) ==
LOC: ER 16:47
DX: R10.13 Epigastric pain (principal); R07.89 Other chest pain; E11.9 Type 2 diabetes mellitus without complications; I10 Essential (primary) hypertension; F17.200 Nicotine dependence, unspecified, uncomplicated; Z98.890 Other specified postprocedural states; Z79.4 Long term (current) use of insulin; Z79.899 Other long term (current) drug therapy; Z20.822 Contact with and (suspected) exposure to COVID-19
CPT/HCPCS: 99285; 74176; 71045; 87426; 93005; 85025; 80048; 83690; 80076; 36415; 84484; 85730; 87081; C9803

== ENCOUNTER 2023-01-19 22:16 | Inpatient (IN) | payer OTHER ==
[~2023-01-19] VITALS: Ht 175.3 cm; Wt 108.0 kg
--- NOTE | 2023-01-19 23:28 | NUR ---
BIBFAMILY FROM HOME WITH CC OF LEFT LEG SWELLING STARTED YESTERDAY. WOKE UP 1PM IN SEVERE PAIN. S/P LEFT FOOT TOES AMPUTATION 6 MOS AGO
[2023-01-19] MEDS ORDERED: ONDANSETRON HCL/PF 4 MG/2 ML VIAL IVP ONE (23:30)
[2023-01-19] MEDS ORDERED: IV NS 0.9% 500 ML BAG IV ONE (23:30)
[2023-01-19] MEDS ORDERED: MORPHINE SULFATE INJ 2 MG/ML DISP.SYRIN IV ONE (23:30)
[2023-01-19] MEDS ORDERED: VANCOMYCIN 1 GM in IV D5W 250 ML IV ONE (23:30)
[2023-01-19] MEDS ORDERED: VANCOMYCIN 1 GM VIAL ONE (23:34)
[2023-01-19] MEDS ORDERED: ONDANSETRON HCL/PF 4 MG/2 ML VIAL ONE (23:34)
[2023-01-19] MEDS ORDERED: MORPHINE SULFATE INJ 4 MG/ML DISP.SYRIN ONE (23:34)
[2023-01-20] MEDS ORDERED: MORPHINE SULFATE INJ 4 MG/ML DISP.SYRIN ONE (00:05)
--- NOTE | 2023-01-20 00:14 | NUR ---
RFA #20G S/L BLOOD AND COVID ANTIGEN SWAB COLLECTED AND SENT TO LAB
[2023-01-20 00:20] LABS: BASOPHILS # (AUTO) 0.1 K/uL (0.0-0.2); BASOPHILS % (AUTO) 0.7 % (0.0-2.0); EOSINOPHILS % (AUTO) 1.2 % (0.0-6.0); HEMATOCRIT 34 % (39-51); HEMOGLOBIN 11.1 g/dL (13.5-17.5); LYMPHOCYTES # (AUTO) 1.6 K/uL (0.8-4.8); LYMPHOCYTES % (AUTO) 12.3 % (20.0-44.0); MEAN CORPUSCULAR HGB CONC 33 g/dl (31.0-36.0); MEAN CORPUSCULAR VOLUME 80 fL (80-96); MONOCYTES % (AUTO) 7.6 % (2.0-12.0); NEUTROPHILS # (AUTO) 9.9 K/uL (1.8-8.9); NEUTROPHILS % (AUTO) 78.2 % (43.0-81.0); PLATELET COUNT (AUTO) 268 K/uL (150-450); RED BLOOD CELL COUNT(AUTO) 4.28 MIL/uL (4.5-6.0); WHITE BLOOD COUNT (AUTO) 12.7 K/uL (4.3-11.0)
--- NOTE | 2023-01-20 01:27 | NUR ---
SPOKE WITH OUSMANE, FERRIS WHEEL OPERATOR FOR CLINICALS. PT IS AUTHORIZED TO STAY.
[2023-01-20 01:30] LABS: BILIRUBIN,DIRECT 0.1 mg/dL (0.0-0.2); BILIRUBIN,TOTAL 0.3 mg/dL (0.2-1.0); CALCIUM, SERUM 7.9 mg/dL (8.5-10.1); CREATININE 3.9 mg/dL (0.6-1.3); POTASSIUM 3.6 mmol/L (3.5-5.1); TOTAL PROTEIN, SERUM 7.5 g/dL (6.4-8.2)
[2023-01-20 01:31] LABS: ALBUMIN 1.4 g/dL (3.4-5.0)
--- NOTE | 2023-01-20 03:17 | NUR ---
report given to KAYLA Carrillo for BENJA
[2023-01-20 04:45] VITALS: BP 142/89
--- NOTE | 2023-01-20 04:45 | NUR ---
MS ORTHOPEDICS NURSE NOTES RECIVED FORM ER PER LOC THIS 42 YO MALE,FROM HOME,ALERT ORIENTED X4,BREATHING REGULAR,NOT IN ANT FORM OF DISTRESS.SALINE LOCK LEFT FORE ARM INTACT AND PATENT.S/P LEFT FOOT TOES AMPUTATION 6 MONTHS AGO,DRESSING INTACT AND DRY.DRESSING CHANGE DONE.LEFT FOOT ELEVATED ON PILLOWS.CALL LIGHT IN REACH,NEEDS ANTICIPATED.
--- NOTE | 2023-01-20 05:09 | NUR ---
PT TRANSPORTED TO UNIT ON [facility] WITH EMT AT BEDSIDE. NAD NOTED. PT IS IN STABLE CONDITION.
[2023-01-20] MEDS ORDERED: ONDANSETRON HCL/PF 4 MG/2 ML VIAL IVP PRN (05:30)
[2023-01-20] MEDS ORDERED: ACETAMINOPHEN 325 MG TABLET PO PRN (05:30)
[2023-01-20] MEDS ORDERED: DEXTROSE 50%-WATER 50 ML DISP.SYRIN IV PRN (05:30)
--- NOTE | 2023-01-20 05:30 | NUR ---
WATER INSPECTOR NOTES ACCU-CHECK BLOOD SUGAR CHECK 149MG/DL,COVERED WITH HUMULIN R 2UNITS PER SIDING SCALE.
[2023-01-20] MEDS: BLOOD SUGAR DIAGNOSTIC 1 EACH STRIP IN SCH ×4 (05:55→22:47)
[2023-01-20] MEDS: INSULIN REGULAR, HUMAN 100 UNIT/ML 3 ML VIAL SQ PRN ×4 (06:32→22:48)
[2023-01-20 06:59] LABS: BASOPHILS # (AUTO) 0.1 K/uL (0.0-0.2); BASOPHILS % (AUTO) 0.6 % (0.0-2.0); EOSINOPHILS % (AUTO) 1.7 % (0.0-6.0); HEMATOCRIT 36 % (39-51); HEMOGLOBIN 11.3 g/dL (13.5-17.5); LYMPHOCYTES # (AUTO) 1.7 K/uL (0.8-4.8); MEAN CORPUSCULAR HGB CONC 31 g/dl (31.0-36.0); MEAN CORPUSCULAR VOLUME 85 fL (80-96); MONOCYTES # (AUTO) 0.9 K/uL (0.1-1.30); MONOCYTES % (AUTO) 7.8 % (2.0-12.0); NEUTROPHILS % (AUTO) 75.9 % (43.0-81.0); PLATELET COUNT (AUTO) 267 K/uL (150-450); RED BLOOD CELL COUNT(AUTO) 4.24 MIL/uL (4.5-6.0); WHITE BLOOD COUNT (AUTO) 11.9 K/uL (4.3-11.0)
[2023-01-20 07:23] LABS: CALCIUM, SERUM 8.3 mg/dL (8.5-10.1); CREATININE 3.8 mg/dL (0.6-1.3); POTASSIUM 3.8 mmol/L (3.5-5.1)
--- NOTE | 2023-01-20 07:50 | NUR ---
MS RN OPENING NOTES PATIENT ASLEEP IN BED, BREATHING UNLABORED AND EVEN, NOT IN ANY FORM OF DISTRESS. SALINE LOCK LEFT FOREARM INTACT AND PATENT. S/P LEFT FOOT TOE AMPUTATION 6 MONTHS AGO, DRESSING INTACT AND DRY, ELEVATED ON PILLOWS. SAFETY PRECAUTIONS MAINTAINED: BED LOCKED AND IN LOW POSITION, SIDE RAILS UP X2, CALL LIGHT AND TRAY TABLE WITHIN REACH. WILL CONTINUE TO MONITOR
[2023-01-20 08:00] VITALS: BP 158/99
--- NOTE | 2023-01-20 08:42 | NUR ---
WOUND CARE CONSULT: PT PRESENTS WITH LEFT FOOT AMPUTATION SITE WITH REDNESS, PRESENT ON ADMISSION. DR MCMAHON CALLED FOR DPM CONSULT. IN AGREEMENT WITH PLAN OF CARE.
[2023-01-20] MEDS: HEPARIN SODIUM, PORCINE 5000 UNITS/1 ML VIAL SQ SCH ×2 (09:09→20:46)
[2023-01-20] MEDS: IV D5/0.45 NACL 1,000 ML IV PRN ×2 (09:10→22:54)
[2023-01-20] MEDS: MORPHINE SULFATE INJ 2 MG/ML DISP.SYRIN IV PRN ×2 (15:23→20:41)
[2023-01-20 15:29] VITALS: BP 141/73
--- NOTE | 2023-01-20 18:44 | NUR ---
MS RN CLOSING NOTES PATIENT ASLEEP IN BED, NO SOB NOTED, BREATHING UNLABORED AND EVEN, NOT IN ANY FORM OF DISTRESS. WITH D5 NS 1/2 AT 75 CC/HR AT RIGHT FA #20G. S/P LEFT FOOT TRANSMETATARSAL AMPUTATION, DRESSING INTACT AND DRY, ELEVATED ON PILLOWS. SAFETY PRECAUTIONS MAINTAINED: BED LOCKED AND IN LOW POSITION, SIDE RAILS UP X2, CALL LIGHT AND TRAY TABLE WITHIN REACH. WILL ENDORSE TO DYE RANGE TENDER NURSE.
--- NOTE | 2023-01-20 19:40 | NUR ---
MS RN OPENING NOTE PATIENT AWAKE IN BED, FRIEND AT BEDSIDE, PT ALERT/ORIENTED X 4, PT ABLE TO MAKE NEEDS KNOWN. PATIENT STABLE ON RA, NO S/S OF DISTRESS OR SOB NOTED, BREATHING EVEN AND UNLABORED. IV ACCESS ON RFA #22G INTACT AND INFUSING D5 1/2 NS @ 75 ML/HR. LEFT FOOT AMPUTATION NOTED, DRESSING C/D/I. SAFETY MEASURES IN PLACE: CALL LIGHT WITHIN REACH, SIDE RAILS UP X 2, BED LOCKED IN LOWEST POSITION, HOB ELEVATED, BED ALARM ON. WILL CONTINUE TO MONITOR PATIENT
[2023-01-20 20:00] VITALS: BP 153/97
--- NOTE | 2023-01-20 20:45 | NUR ---
MS RN NOTE PATIENT'S BP ELEVATED 153/97, HOWEVER PATIENT C/O 8/10 LEFT FOOT PAIN. PRN MORPHINE 2 MG IV GIVEN ORDERED. WILL CONTINUE TO MONITOR PATIENT
[2023-01-21] MEDS: MORPHINE SULFATE INJ 2 MG/ML DISP.SYRIN IV PRN ×5 (01:41→23:07)
[2023-01-21 06:26] LABS: BILIRUBIN,URINE NEGATIVE (NEGATIVE); COLOR,URINE YELLOW (YELLOW); LEUKOCYTE ESTERASE ,URINE NEGATIVE (NEGATIVE); NITRITE, URINE NEGATIVE (NEGATIVE); PH,URINE 7.5 (5.0-8.0); PROTEIN,URINE 3+ mg/dl (NEGATIVE); UGLUCOSE 2+ mg/dL (NEGATIVE)
--- NOTE | 2023-01-21 06:32 | NUR ---
MS RN CLOSING NOTE PATIENT SLEEPING IN BED, EASILY AWAKENED, PT ALERT/ORIENTED X 4, PT ABLE TO MAKE NEEDS KNOWN. PATIENT STABLE ON RA, NO S/S OF DISTRESS OR SOB NOTED, BREATHING EVEN AND UNLABORED. IV ACCESS ON RFA #22G INTACT AND INFUSING D5 1/2 NS @ 75 ML/HR. NO SIGNIFICANT CHANGES THIS SHIFT, PATIENT SLEPT WELL THROUGH THE NIGHT, MEDICATIONS GIVEN ORDERED, PT NEEDS MET THROUGHOUT SHIFT, PAIN CONTROLLED WITH PRN MORPHINE. SAFETY MEASURES IN PLACE: CALL LIGHT WITHIN REACH, SIDE RAILS UP X 2, BED LOCKED IN LOWEST POSITION, HOB ELEVATED, BED ALARM ON. WILL ENDORSE TO DAYSHIFT RN FOR CONTINUITY OF CARE
[2023-01-21] MEDS: INSULIN REGULAR, HUMAN 100 UNIT/ML 3 ML VIAL SQ PRN ×3 (06:44→17:30)
[2023-01-21] MEDS: BLOOD SUGAR DIAGNOSTIC 1 EACH STRIP IN SCH ×4 (06:44→21:41)
[2023-01-21 06:59] LABS: BASOPHILS % (AUTO) 0.4 % (0.0-2.0); EOSINOPHILS % (AUTO) 2.4 % (0.0-6.0); HEMATOCRIT 31 % (39-51); HEMOGLOBIN 9.7 g/dL (13.5-17.5); LYMPHOCYTES # (AUTO) 2.3 K/uL (0.8-4.8); LYMPHOCYTES % (AUTO) 18.3 % (20.0-44.0); MEAN CORPUSCULAR HGB CONC 32 g/dl (31.0-36.0); MEAN CORPUSCULAR VOLUME 82 fL (80-96); MONOCYTES % (AUTO) 7.8 % (2.0-12.0); NEUTROPHILS # (AUTO) 9.1 K/uL (1.8-8.9); NEUTROPHILS % (AUTO) 71.1 % (43.0-81.0); PLATELET COUNT (AUTO) 340 K/uL (150-450); RED BLOOD CELL COUNT(AUTO) 3.74 MIL/uL (4.5-6.0); WHITE BLOOD COUNT (AUTO) 12.8 K/uL (4.3-11.0)
[2023-01-21 07:00] VITALS: BP 156/93
[2023-01-21 07:13] LABS: CALCIUM, SERUM 8.3 mg/dL (8.5-10.1); CREATININE 3.5 mg/dL (0.6-1.3); POTASSIUM 4.2 mmol/L (3.5-5.1)
[2023-01-21 07:45] LABS: BACTERIA,URINE Few /HPF (None Seen); SQUAMOUS EPITHELIAL CELL,UR Few /HPF (None Seen); WBC,URINE 0-2 /HPF (0-3)
--- NOTE | 2023-01-21 07:45 | NUR ---
MS RN OPENING NOTE (DAY SHIFT) PATIENT ASLEEP IN BED, BREATHING UNLABORED AND EVEN, NOT IN ANY FORM OF DISTRESS. SALINE LOCK LEFT FOREARM INTACT AND PATENT. S/P LEFT FOOT TOE AMPUTATION 6 MONTHS AGO, DRESSING INTACT AND DRY, ELEVATED ON PILLOWS. SAFETY PRECAUTIONS MAINTAINED: BED LOCKED AND IN LOW POSITION, SIDE RAILS UP X2, CALL LIGHT AND TRAY TABLE WITHIN REACH. WILL CONTINUE TO MONITOR AND CARE FOR PATIENT PER MD'S POC.
[2023-01-21] MEDS: HEPARIN SODIUM, PORCINE 5000 UNITS/1 ML VIAL SQ SCH ×2 (08:29→20:46)
[2023-01-21] MEDS: THERAHONEY GEL 1.5 OZ TUBE TP SCH (11:18)
[2023-01-21 16:31] VITALS: BP 162/99
--- NOTE | 2023-01-21 18:59 | NUR ---
MS RN CLOSING NOTE (DAY SHIFT) PATIENT ASLEEP IN BED, NO SOB NOTED, BREATHING UNLABORED AND EVEN, NOT IN ANY FORM OF DISTRESS. IV ACCESS TO RIGHT FA #20G, STILL PATENT, CLEAN, DRY, INTACT, SALINE LOCKED. S/P LEFT FOOT TRANSMETATARSAL AMPUTATION, DRESSING INTACT AND DRY, ELEVATED ON PILLOWS. SAFETY PRECAUTIONS MAINTAINED: BED LOCKED AND IN LOW POSITION, SIDE RAILS UP X2, CALL LIGHT AND TRAY TABLE WITHIN REACH. PAIN MANAGED WITH MORPHINE 2 MG IV PUSH EVERY 4 HOURS NEEDED. WILL ENDORSE TO MANAGER BILLING NURSE FOR BENJA.
[2023-01-21 20:00] VITALS: BP 156/99
--- NOTE | 2023-01-21 20:01 | NUR ---
RN MS OPENING NOTES RECEIVED PATIENT IN BED, ON MODERATE HIGH BACK REST POSITION. ASLEEP IN COMFORTABLE POSITION. ON ROOM AIR SATURATING WELL. UPON ASSESSMENT PATIENT VERBALIZED PAIN OF 9/10 SP, PAIN MEDICATIONS GIVEN AN D WELL TOLERATED BY THE PATIENT. NO SOB OR ANY DISTRESS NOTED AT THIS TIME. WITH IV ACCESS AT RIGHT FOREARM #20G PATENT AND INTACT. NOTED LLE DRESSING CLEAN AND DRY. PATIENT IS ON BED REST. ON CARDIAC DIET TOLERATED. BLOOD SUGAR MONITORING MAINTAINED WITH INSULIN COVERAGE. SAFETY MEASURES MAINTAINED.KEPT BED ON LOWER LOCKED POSITION, KEPT SIDE RAILS UP X 2, KEPT CALL LIGHT WITHIN AT REACH. WILL CONTINUE TO MONITOR.
[2023-01-22] MEDS: MORPHINE SULFATE INJ 2 MG/ML DISP.SYRIN IV PRN ×2 (03:09→08:45)
--- NOTE | 2023-01-22 06:52 | NUR ---
RN MS CLOSING NOTES PATIENT IS IN BED, ON MODERATE HIGH BACK REST POSITION. ASLEEP IN COMFORTABLE POSITION. ON ROOM AIR SATURATING WELL.PAIN MANAGEMENT MAINTAINED AND PAIN MADICATIONS GIVEN TOLERATED AND ORDERED. NO SOB OR ANY DISTRESS NOTED AT THIS TIME. WITH IV ACCESS AT RIGHT FOREARM #20G PATENT AND INTACT. NOTED LLE DRESSING CLEAN AND DRY. PATIENT IS ON BED REST. ON CARDIAC DIET TOLERATED. BLOOD SUGAR MONITORING MAINTAINED WITH INSULIN COVERAGE. SAFETY MEASURES MAINTAINED.KEPT BED ON LOWER LOCKED POSITION, KEPT SIDE RAILS UP X 2, KEPT CALL LIGHT WITHIN AT REACH. WILL ENDORSED TO NEXT SHIFT FOR BENJA.
[2023-01-22] MEDS: INSULIN REGULAR, HUMAN 100 UNIT/ML 3 ML VIAL SQ PRN ×2 (07:37→12:02)
[2023-01-22] MEDS: BLOOD SUGAR DIAGNOSTIC 1 EACH STRIP IN SCH ×2 (07:37→11:58)
[2023-01-22 08:00] VITALS: BP 165/103
[2023-01-22] MEDS ORDERED: SULF1TAB48 PO (08:00)
[2023-01-22] MEDS: THERAHONEY GEL 1.5 OZ TUBE TP SCH (08:45)
[2023-01-22 08:46] VITALS: BP 165/103
[2023-01-22] MEDS: HEPARIN SODIUM, PORCINE 5000 UNITS/1 ML VIAL SQ SCH (08:52)
[2023-01-22] MEDS ORDERED: GABAPENTIN 300 MG CAPSULE PO SCH (09:00)
[2023-01-22] MEDS ORDERED: LISINOPRIL (10MG) 10 MG TABLET PO SCH (09:00)
[2023-01-22] MEDS ORDERED: GABAPENTIN 400 MG CAPSULE PO SCH (09:00)
[2023-01-22] MEDS ORDERED: VANCOMYCIN 1.25 GM in IV D5W 250 ML IV SCH (10:00)
--- NOTE | 2023-01-22 15:59 | NUR ---
RN MS DISCHARGE TO HOME NOTE PATIENT TOLERATED WELL THE REMOVAL OF # 20 GAUGE PIV CATHETER FULLY INTACT FROM HIS RIGHT LOWER FOREARM. PATIENT DEMONSTRATED UNDERSTANDING OF HIS HOME CARE DISCHARGE INSTRUCTIONS USING THE TEACH BACK METHOD IN HIS OWN WORDS. PATIENT [facility] 16:05 HOURS
[2023-01-22] MEDS ORDERED: INSULIN GLARGINE, 100 UNIT/ML CARTRIDGE SQ SCH (22:00)
[2023-01-23] MEDS ORDERED: GABAPENTIN 300 MG CAPSULE PO SCH (22:00)
== END 2023-01-22 17:00 | disposition home or self-care (01) | DRG 383 ==
LOC: ER 22:20 → MED 01-20 03:13
PROVIDERS: ADMIT Internal Medicine; ATTEND Internal Medicine
PROC: 0JBR0ZZ Excision of Left Foot Subcutaneous Tissue and Fascia, Open Approach (ICD-10-PCS; principal; 2023-01-21)
DX: L03.116 Cellulitis of left lower limb (principal); N17.0 Acute kidney failure with tubular necrosis; E43 Unspecified severe protein-calorie malnutrition; E11.22 Type 2 diabetes mellitus with diabetic chronic kidney disease; E11.9 Type 2 diabetes mellitus without complications; Z89.422 Acquired absence of other left toe(s); I10 Essential (primary) hypertension; E87.1 Hypo-osmolality and hyponatremia; E66.9 Obesity, unspecified; E11.42 Type 2 diabetes mellitus with diabetic polyneuropathy; E11.621 Type 2 diabetes mellitus with foot ulcer; L97.529 Non-pressure chronic ulcer of other part of left foot with unspecified severity; E78.5 Hyperlipidemia, unspecified; E88.09 Other disorders of plasma-protein metabolism, not elsewhere classified; E87.70 Fluid overload, unspecified; I13.10 Hypertensive heart and chronic kidney disease without heart failure, with stage 1 through stage 4 chronic kidney disease, or unspecified chronic kidney disease; I77.810 Thoracic aortic ectasia; N18.9 Chronic kidney disease, unspecified; Z79.84 Long term (current) use of oral hypoglycemic drugs; Z79.899 Other long term (current) drug therapy; Z20.822 Contact with and (suspected) exposure to COVID-19
CPT/HCPCS: 36415; 71045-TC; 76770-TC; 80048-TC; 80061-TC; 80076-TC; 81001; 82962-TC; 83605-TC; 83690-TC; 83735-TC; 84100-TC; 85025-TC; 85730-TC; 87040-TC; 87081-TC; 93971-TC; A4223; A6403; C9803; G0378; J1644; J1815; J2270; J2405; J3370; J3490; J7040; J7060

== ENCOUNTER 2023-02-18 09:25 | Emergency (ER) | payer OTHER ==
[~2023-02-18] VITALS: Ht 175.3 cm; Wt 99.8 kg
[~2023-02-18 09:25] MED LIST changes: +SULF1TAB48 PO; -VANC750F2 IV
--- NOTE | 2023-02-18 09:30 | NUR ---
RECEIVED PT 42YRS MALE FROM HOME WALKING in c/o pain and swallen on LT LEG AND SKIN REDNESS FOR 2 DAYS
--- NOTE | 2023-02-18 09:40 | NUR ---
GONZALES DRESSING ON LT LEG AND SUPPLED DRESSING GIVEN TO PT WITH KALEX DRESSING
--- NOTE | 2023-02-18 09:45 | NUR ---
SEEN BY DR. HOFFMAN
[2023-02-18] MEDS ORDERED: CLINDAMYCIN HCL 150 MG CAPSULE ONE (09:50)
--- NOTE | 2023-02-18 09:50 | NUR ---
CLEOVIN 500 MG PO GIVEN
[2023-02-18] MEDS ORDERED: CLIN300C12 PO (09:53)
[2023-02-18] MEDS ORDERED: CLINDAMYCIN HCL 150 MG CAPSULE PO ONE (10:00)
[2023-02-18] MEDS ORDERED: IBUPROFEN 400 MG TABLET ONE (10:22)
[2023-02-18] MEDS ORDERED: IBUPROFEN 400 MG TABLET PO ONE (10:30)
--- NOTE | 2023-02-18 10:45 | NUR ---
bp 190/[address] HOFFMAN AWARE OKAY TO D/C HOME
--- NOTE | 2023-02-18 10:50 | NUR ---
Patient discharged to home in stable condition. Written and verbal after care instructions given. Patient verbalizes understanding of instruction.
[2023-02-18 10:57] VITALS: BP 190/114
== END 2023-02-18 10:57 | disposition home or self-care (01) ==
LOC: ER 09:29
DX: L03.116 Cellulitis of left lower limb (principal); I10 Essential (primary) hypertension; E11.9 Type 2 diabetes mellitus without complications; F17.200 Nicotine dependence, unspecified, uncomplicated; Z98.890 Other specified postprocedural states; Z79.899 Other long term (current) drug therapy; Z79.84 Long term (current) use of oral hypoglycemic drugs
CPT/HCPCS: 99283; A6403

== ENCOUNTER 2023-10-19 10:17 | Emergency (ER) | payer OTHER ==
[~2023-10-19] VITALS: Ht 175.3 cm; Wt 95.3 kg
[~2023-10-19 10:17] MED LIST changes: +CLIN300C12 PO
[2023-10-19] MEDS ORDERED: HYDROCODONE/APAP 5/325MG TABLET ONE (11:34)
[2023-10-19] MEDS: HYDROCODONE/APAP 5/325MG TABLET PO ONE (11:41)
[2023-10-19 11:54] LABS: BASOPHILS # (AUTO) 0.3 K/uL (0.0-0.2); BASOPHILS % (AUTO) 3.4 % (0.0-2.0); EOSINOPHILS # (AUTO) 0.1 K/uL (0.0-0.7); EOSINOPHILS % (AUTO) 1.7 % (0.0-6.0); HEMATOCRIT 41 % (39-51); HEMOGLOBIN 13.5 g/dL (13.5-17.5); LYMPHOCYTES # (AUTO) 1.7 K/uL (0.8-4.8); LYMPHOCYTES % (AUTO) 21.4 % (20.0-44.0); MEAN CORPUSCULAR HEMOGLOBIN 29 PG (26.0-33.0); MEAN CORPUSCULAR HGB CONC 33 g/dl (31.0-36.0); MEAN CORPUSCULAR VOLUME 88 fL (80-96); MONOCYTES # (AUTO) 0.6 K/uL (0.1-1.30); MONOCYTES % (AUTO) 7.7 % (2.0-12.0); NEUTROPHILS # (AUTO) 5.2 K/uL (1.8-8.9); NEUTROPHILS % (AUTO) 65.8 % (43.0-81.0); PLATELET COUNT (AUTO) 304 K/uL (150-450); RED BLOOD CELL COUNT(AUTO) 4.68 MIL/uL (4.5-6.0); RED CELL DISTRIBUTION WIDTH 15.9 % (11.5-15.0)
[2023-10-19 12:05] LABS: CALCIUM, SERUM 8.5 mg/dL (8.5-10.1); CREATININE 4.5 mg/dL (0.6-1.3)
[2023-10-19 13:16] VITALS: BP 72/84; TEMP 98.7; O2SAT 99
== END 2023-10-19 13:17 | disposition home or self-care (01) ==
LOC: ER 10:28
DX: I12.0 Hypertensive chronic kidney disease with stage 5 chronic kidney disease or end stage renal disease (principal); N18.6 End stage renal disease; M79.10 Myalgia, unspecified site; E11.22 Type 2 diabetes mellitus with diabetic chronic kidney disease; Z98.890 Other specified postprocedural states; F17.200 Nicotine dependence, unspecified, uncomplicated; Z79.899 Other long term (current) drug therapy; Z79.82 Long term (current) use of aspirin
CPT/HCPCS: 36415; 71045-TC; 80048-TC; 85025-TC

== ENCOUNTER 2024-10-21 09:59 | Emergency (ER) | payer OTHER ==
[~2024-10-21] VITALS: Ht 175.3 cm; Wt 94.8 kg
[2024-10-21] MEDS: ACETAMINOPHEN 325 MG TABLET PO ONE (10:30)
[2024-10-21] MEDS: TDAP [DIPH/PERTUSSIS/TET] 0.5 ML VIAL IM ONE (10:30)
[2024-10-21] MEDS ORDERED: ACETAMINOPHEN 325 MG TABLET ONE ×2 (10:54→11:02)
[2024-10-21] MEDS ORDERED: TDAP [DIPH/PERTUSSIS/TET] 0.5 ML VIAL IM ONE ×2 (10:54→11:02)
[2024-10-21 12:47] VITALS: BP 124/81; TEMP 97.9; O2SAT 99
== END 2024-10-21 12:47 | disposition home or self-care (01) ==
LOC: ER 10:08
DX: S00.83XA Contusion of other part of head, initial encounter (principal); E11.22 Type 2 diabetes mellitus with diabetic chronic kidney disease; F17.200 Nicotine dependence, unspecified, uncomplicated; I12.0 Hypertensive chronic kidney disease with stage 5 chronic kidney disease or end stage renal disease; N18.6 End stage renal disease; K13.79 Other lesions of oral mucosa; Z79.84 Long term (current) use of oral hypoglycemic drugs; Z79.899 Other long term (current) drug therapy; Z99.2 Dependence on renal dialysis; Z86.79 Personal history of other diseases of the circulatory system; Z87.19 Personal history of other diseases of the digestive system; Z87.39 Personal history of other diseases of the musculoskeletal system and connective tissue; V00.141A Fall from scooter (nonmotorized), initial encounter; Y93.89 Activity, other specified; Y92.488 Other paved roadways as the place of occurrence of the external cause; Y99.8 Other external cause status
CPT/HCPCS: 70450-TC; 70486-TC; 90715